=== PATIENT | female | born 1995 ===

== ENCOUNTER 2023-01-06 16:05 | Emergency (ER) | payer OTHER, SELFPAY ==
[2023-01-06 16:28] VITALS: BP 149/95; PULSE 80; RESP 18; TEMP 36.9; O2SAT 100; BMI 33.2
--- NOTE | 2023-01-06 16:29 | ED.FEMALEGU ---
HPI - Female Genitourinary General Chief complaint: Urogenital-Female Stated complaint: ?UTI Time Seen by Provider: 01/06/23 17:04 Related Data Previous Rx's Medication Instructions Recorded nitrofurantoin 100 mg PO Q12H 7 days #14 caps 01/06/23 monohydrate/macrocrystals 100 mg capsule (Macrobid) phenazopyridine 200 mg tablet 200 mg PO TID PRN pain 6 doses #6 01/06/23 (Pyridium) tabs Allergies Allergy/AdvReac Type Severity Reaction Status Date / Time No Known Allergies Allergy Verified 01/06/23 16:29 Physical Exam Vital Signs: Vital Signs: Last Vital Signs Temp 98.5 F 01/06/23 16:28 Pulse 80 01/06/23 16:28 Resp 18 01/06/23 16:28 BP 149/95 H 01/06/23 16:28 Pulse Ox 100 01/06/23 16:28 O2 Del Method Room Air 01/06/23 16:28 BMI result Body Mass Index 33.2 Course Course Course Narrative: RME - 27 yo female presents to the ER for evaluation of 2 weeks of dysuria, urgency, frequency and suprapubic pain. No abd pain, N/V/D, fever, chills or back pain. LMP in July, hx irregular menses. Plan: Upreg, UA Reevaluation(s) Reevaluation #1: see valdo diez PA-C's note for full evaluation and treatment plan Medications Administered Discontinued Medications Generic Name Dose Route Start Last Admin Trade Name Freq PRN Reason Stop Dose Admin Nitrofurantoin Macrocrystals 100 mg 01/06/23 17:34 01/06/23 17:49 Nitrofurantoin Monohyd/M-Cryst 100 Mg Capsule PO 01/06/23 17:35 100 mg ONCE ONE Administration Medical Decision Making Lab Data Labs: Lab Results 01/06/23 01/06/23 Range/Units 16:55 16:55 Urine Color Straw Urine Appearance Hazy Urine pH 7.0 (5.0-9.0) Ur Specific [place] 1.020 (1.005-1.025) Urine Protein Negative (Neg-Trace) mg/dL Urine Glucose (UA) Negative (Negative) mg/dL Urine Ketones Negative (Negative) mg/dL Urine Blood Small (1+) H (Negative) Urine Nitrite Negative (Negative) Ur Leukocyte Esterase Small (1+) H (Negative) Urine RBC 6-10 H (0-2) /HPF Urine WBC >50 H (0-5) /HPF Ur Squamous Epith Cells 0-2 (0-2) /HPF Urine Bacteria Trace (None Seen) Hyaline Casts 0-2 (0-2) /LPF Urine Test NEGATIVE (NEGATIVE) Discharge Plan Discharge Clinical Impression: Urinary tract infection Patient Disposition: Home, Self-Care Instructions: Urinary Tract Infection in Women (DC) Additional Instructions: You have a urinary tract infection Macrobid is an antibiotic please take as prescribed Pyridium will help with urinary discomfort, this will turn your urine orange, this is normal If you develop fever, nausea/vomiting, abdominal pain or flank pain return to the ED Prescriptions: New phenazopyridine [Pyridium] 200 mg tablet 200 mg PO TID PRN (Reason: pain) Qty: 6 0RF nitrofurantoin monohyd/m-cryst [Macrobid] 100 mg capsule 100 mg PO Q12H 7 Days Qty: 14 0RF Rx Instructions: must administer with a meal/food Referrals: Mitch Engel MD [Primary Care Provider] - 1 week Interventions: ED Discharge Assessment Last Done: 01/06/23 17:58 Discharge Date/Time: 01/06/23 17:59
[2023-01-06 17:10] LABS: UPreg QC Valid YES; Urine Pregnancy NEGATIVE (NEGATIVE)
[2023-01-06 17:11] LABS: Appearance Urine Hazy; Color Urine Straw; Glucose Urine UA Negative (Negative); Leukocyte Esterase Urine Small (1+) (Negative); Nitrite Urine Negative (Negative); UMIC TRIGGER UACC YES; Urine Blood Small (1+) (Negative); Urine Ketones Negative (Negative); Urine Protein Negative (Neg-Trace)
[2023-01-06 17:28] LABS: Bacteria Urine Trace (None Seen); Hyaline Casts Urine 0-2 /LPF (0-2); Squamous Epithelial Cell Urine 0-2 /HPF (0-2); UACC Culture Trigger YES; WBC Urine >50 /HPF (0-5)
--- NOTE | 2023-01-06 17:34 | ED.FEMALEGU ---
HPI - Female Genitourinary General Chief complaint: Urogenital-Female Stated complaint: ?UTI Time Seen by Provider: 01/06/23 17:04 Source: patient, RN notes reviewed and old records reviewed Mode of arrival: ambulatory History of Present Illness HPI Narrative: 27-year-old female with no significant past medical history presenting to the ED complaining of urinary urgency and dysuria x3 weeks. Reports mild associated suprapubic discomfort. Denies fever/chills, nausea/vomiting, flank pain, vaginal bleeding/discharge MD elicited complaint: UTI Related Data Previous Rx's Medication Instructions Recorded nitrofurantoin 100 mg PO Q12H 7 days #14 caps 01/06/23 monohydrate/macrocrystals 100 mg capsule (Macrobid) phenazopyridine 200 mg tablet 200 mg PO TID PRN pain 6 doses #6 01/06/23 (Pyridium) tabs Allergies Allergy/AdvReac Type Severity Reaction Status Date / Time No Known Allergies Allergy Verified 01/06/23 16:29 Review of Systems Review of Systems: Constitutional: No Fever, No Chills ENT/Mouth: No Ear Pain, No Nasal Congestion, No sore throat, No Rhinorrhea, No Swallowing Difficulty Cardiovascular: No Chest Pain, No SOB Respiratory: No Cough Gastrointestinal: No Nausea, No Vomiting, No Diarrhea, +Abdominal pain Genitourinary: + Dysuria, + Urinary Frequency, No Hematuria, No Urinary Incontinence/retention, No Urgency, No Flank Pain Musculoskeletal: No joint pain, No Myalgias, No Joint Swelling Skin: No Skin Lesions, No rash Yes all other systems are reviewed and are negative Constitutional: Constitutional: Reports as per [facility] Past Medical History Attestation statement: The following information was validated with the patient. Source: old records reviewed Physical Exam Vital Signs: Vital Signs: Last Vital Signs Temp 98.5 F 01/06/23 16:28 Pulse 80 01/06/23 16:28 Resp 18 01/06/23 16:28 BP 149/95 H 01/06/23 16:28 Pulse Ox 100 01/06/23 16:28 O2 Del Method Room Air 01/06/23 16:28 BMI result Body Mass Index 33.2 Const: General: cooperative, healthy appearing and no acute distress Orientation/consciousness: patient oriented x3 Limitations: no limitations HEENT: Head: Yes normal to inspection and Yes atraumatic Ears: hearing grossly normal bilaterally General nose exam: Normal external nose present Face and sinus: Yes normal facial exam Eyes: General: appearance normal, both eyes and all related structures EOM: EOMs intact bilaterally Neck: Neck: Yes normal visual inspection and Yes no meningeal signs Resp: Effort & Inspection: normal respiratory effort and no respiratory distress Cardio: Rate: regular rate GI: Inspection: Yes normal to inspection Palpation (GI): Soft to palpation, nontender, no guarding and not rigid : General: Yes no CVA tenderness Back/Spine/Pelvis: Back: no CVA tenderness Skin: Rashes: no rashes Wounds: no wounds Neuro: General: patient oriented x3, tone normal and no meningeal signs Gait exam (Neuro): Normal gait present Extrem: General: Yes normal to inspection Course Course Course Narrative: 1736--UA infected, negative > patient given 1st dose of Macrobid in the ED Results discussed with patient including worrisome signs and symptoms and strict return precautions, and when to return to the emergency department. They verbalized understanding and feel safe for discharge at this time. Medications Administered Discontinued Medications Generic Name Dose Route Start Last Admin Trade Name Freq PRN Reason Stop Dose Admin Nitrofurantoin Macrocrystals 100 mg 01/06/23 17:34 01/06/23 17:49 Nitrofurantoin Monohyd/M-Cryst 100 Mg Capsule PO 01/06/23 17:35 100 mg ONCE ONE Administration Medical Decision Making Medical Decision Making [facility] Narrative: 27-year-old female with no significant past medical history presenting to the ED complaining of urinary urgency and dysuria x3 weeks. On exam vital signs stable, NAD, nontoxic appearing, abdomen soft/nontender, no CVAT. Concern for UTI. Lower suspicion for STI, ovarian torsion/cyst, appendicitis/diverticulitis or renal stone/pilonidal plan: UA, urine Please refer to course for remaining clinical decision making, interpretation of labs/imaging results, and discussions with consultants and/or family members. Differential Diagnosis Differential Diagnoses: The differential diagnosis associated with the presentation includes As above Lab Data [facility] Lab Attestation statement: I reviewed the patient's lab results. Labs: Lab Results 01/06/23 01/06/23 Range/Units 16:55 16:55 Urine Color Straw Urine Appearance Hazy Urine pH 7.0 (5.0-9.0) Ur Specific [place] 1.020 (1.005-1.025) Urine Protein Negative (Neg-Trace) mg/dL Urine Glucose (UA) Negative (Negative) mg/dL Urine Ketones Negative (Negative) mg/dL Urine Blood Small (1+) H (Negative) Urine Nitrite Negative (Negative) Ur Leukocyte Esterase Small (1+) H (Negative) Urine RBC 6-10 H (0-2) /HPF Urine WBC >50 H (0-5) /HPF Ur Squamous Epith Cells 0-2 (0-2) /HPF Urine Bacteria Trace (None Seen) Hyaline Casts 0-2 (0-2) /LPF Urine Test NEGATIVE (NEGATIVE) External Record Review External record reviewed: Inpatient record, Office record, Outpatient record, Prior outpatient labs, Prior outpatient radiology, Primary care record and Outside ED record Tests considered The following testing was considered but not selected: As above Prescription Management I considered prescription management with: Pain Medication Discharge Plan Discharge Clinical Impression: Urinary tract infection Patient Disposition: Home, Self-Care Instructions: Urinary Tract Infection in Women (DC) Additional Instructions: You have a urinary tract infection Macrobid is an antibiotic please take as prescribed Pyridium will help with urinary discomfort, this will turn your urine orange, this is normal If you develop fever, nausea/vomiting, abdominal pain or flank pain return to the ED Prescriptions: New phenazopyridine [Pyridium] 200 mg tablet 200 mg PO TID PRN (Reason: pain) Qty: 6 0RF nitrofurantoin monohyd/m-cryst [Macrobid] 100 mg capsule 100 mg PO Q12H 7 Days Qty: 14 0RF Rx Instructions: must administer with a meal/food Referrals: Mitch Engel MD [Primary Care Provider] - 1 week Interventions: ED Discharge Assessment Last Done: 01/06/23 17:58 Discharge Date/Time: 01/06/23 17:59
[2023-01-06] MEDS: Nitrofurantoin Monohyd/M-Cryst 100 MG CAPSULE PO (17:49)
== END 2023-01-06 17:59 | disposition home or self-care (01) ==
PROVIDERS: Physician Assistant; Emergency Provider Emergency Medicine Emergency Medical Services; PCP Internal Medicine
DX: N39.0 Urinary tract infection, site not specified (principal); N39.41 Urge incontinence; Z79.899 Other long term (current) drug therapy
CPT/HCPCS: 81001; 81025; 87086; 87088; 87186; 99282; 99283

== ENCOUNTER 2023-01-29 08:00 | Outpatient (AMB) | payer OTHER, SELFPAY ==
--- NOTE | 2023-01-29 08:07 | A.OFFPC_ITS ---
Vital Signs 01/29/23 08:09 Height 5 ft Weight 177 lb BMI 34.6 BP 132/90 H Blood Pressure Location Lt brachial Position Sitting Intake Visit Reasons: follow up / new patient visit Intake Note: New patient establishing care Equipment Planner Required: No Accompanied by: Self / Same As Patient Allergies No Known Allergies Allergy (Verified 01/29/23 08:23) Medication List - Last Reconciled 01/29/23 by JLUIS Pepe No Known Home Meds Tobacco use date assessed: 01/29/23 Dental Screening Dental Screen Date: 01/29/23 Did you have a dental visit in the last 12 months?: No Did you have a dental problem in the last 6 months where you did not have access to dental care?: No Was dental information given to patient?: Patient has dentist HPI HPI Comments History of Present Illness Details 27-year-old female new patient presents today to establish care. Denies significant medical history. Patient reports that she feels like her anxiety has been bothering her more. Wally 7 score 4, patient requesting referral to counseling. Referral entered. Review of the notes patient was seen in the emergency room on 01/06/2023 for UTI and was treated with Macrobid and Pyridium. Patient reports thoracic/lumbar back pain ongoing since she was in high school which it seems to be worsening with pain shooting down left leg with ambulation. Patient states she was told in the past she may have scoliosis. Patient requesting x-rays. [facility] Surgical History No pertinent past surgical history Family History (Updated 01/29/23 @ 08:20 by JLUIS Pepe) Mother Mental health disorder Substance use disorder Father Diabetes Sister Diabetes Social History (Updated 01/29/23 @ 08:21 by JLUIS Pepe) Housing: House Alcohol intake: current Alcohol intake frequency: holidays/special occasions only Alcohol type: hard liquor Patient Tobacco Use Status: Never used Tobacco e-Cigarette/Vaping Use: Never Used Second Hand Smoke Exposure: No Substance Use Type: Marijuana service: No Current occupational status: employed Current occupational exposures/hazards: No Cognitive needs: No Hearing needs: No Vision needs: No Questionnaire PHQ-9 Over the last 2 weeks, how often have you been bothered by any of the following problems? 1. Little interest or pleasure in doing things: several days 2. Feeling down, depressed, or hopeless: several days 3. Trouble falling or staying asleep, or sleeping too much: not at all 4. Feeling tired or having little energy: several days 5. Poor appetite or overeating: several days 6. Feeling bad about yourself - or that you are a failure or have let yourself or your family down: not at all 7. Trouble concentrating on things, such as reading the newspaper or watching television: not at all 8. Moving or speaking so slowly that other people could have noticed. Or the opposite - being so fidgety or restless that you have been moving around a lot more than usual: not at all 9. Thoughts that you would be better off or of hurting yourself in some way: not at all Total score: 4 Depression Screening Interpretation: Negative 90653 - PHQ-9 Billing: Yes Source: Developed by Drs. Waqas August, Ksenia Mcconnell, Alexys Weiner and colleagues, with an educational wdaine from [employer]. Thrive Questionnaire Date Thrive assessed: 01/29/23 I am a: Patient What is your living situation today?: I have a steady place to live Within the past 12 months, did the food you bought not last and you didn't have the money to get more?: Never true Within the past 12 months, did you worry whether your food would run out before you got money to buy more?: Never true Do you have trouble paying for medicines?: No Do you have trouble getting transportation to medical appointments?: No Do you have trouble paying your heating and electricity bill?: No Do you have trouble taking care of your child, family member or friend?: No Do you have trouble with day-to-day activities such as bathing, preparing meals, shopping, managing finances, etc.?: No Are you currently unemployed and looking for a job?: No Are you interested in more education?: No Please select the resources that you would like help with: None Currently or been in a relationship where the following occur: no concerns reported AUDIT C Alcohol Use Questionnaire (AUDIT-C) 1. How often do you have a drink containing alcohol?: Monthly or less 2. How many drinks containing alcohol do you have on a typical day when you are drinking?: 1 or 2 3. How often do you have six or more drinks on one occasion?: Never Total Score: 1 WALLY-7 AMB Questionnaire WALLY-7 Date WALLY - 7 assessed: 01/29/23 Feeling nervous, anxious, or on edge: 1 = Several days Not being able to stop or control worryin = Not at all Worrying too much about different things: 1 = Several days Trouble relaxin = Several days Being so restless that it is hard to sit still: 0 = Not at all Becoming easily annoyed or irritable: 1 = Several days Feeling afraid as if something awful might happen: 0 = Not at all Total WALLY-7 score (0-4 normal; 5-9 mild; 10-14 moderate; 15-21 severe): 4 Source: Developed by Drs. Waqas August, Ksenia Mcconnell, Alexys Weiner and colleagues, with an educational dwaine from [employer]. WALLY-7 Assessment Billing WALLY-7 Assessment Tool: WALLY-7 Assessment 78585 Review of Systems Const Denies chills, Denies fatigue, Denies fever(s) and Denies poor appetite Eyes Denies no additional complaints ENT Reports Normal hearing present Card Denies chest pain, Denies syncope, Denies rapid heart rate and Denies dyspnea Resp Denies cough and Denies dyspnea GI Denies change in stool character, Denies constipation, Denies diarrhea, Denies nausea and Denies vomiting Denies urinary frequency, Denies dysuria and Denies urinary urgency Musc Reports back pain Neuro Reports Normal hearing present, Denies confusion and Denies syncope Psych Denies confusion Endo Denies fatigue Physical exam (Primary Care) Vital Signs: Last Vital Signs BP 132/90 H 01/29/23 08:09 BMI result Body Mass Index 34.6 Tobacco/Smoking Status: Tobacco use Status Tobacco use date assessed 01/29/23 01/29/23 08:17 Patient Tobacco Use Status Never used Tobacco 01/29/23 08:21 e-Cigarette/Vaping Use Never Used 01/29/23 08:21 PHQ-9: PHQ-9 Score PHQ-9: Total score 4 01/29/23 08:22 Depression Screening Interpretation: Negative Thrive Assessment: Date of Thrive Assessment Date Thrive assessed 01/29/23 01/29/23 08:17 Currently or been in a relationship where the following occur: no concerns reported Const General: No confusion Orientation/consciousness: No confusion HENMT Head: Yes normocephalic and Yes atraumatic Eyes Conjunctivae: conjunctivae normal Chest Chest palpation & inspection: normal inspection of the chest Resp Effort & Inspection: normal respiratory effort Auscultation: clear to auscultation bilaterally, no crackles, no rhonchi and no wheezes Cardio Rate: regular rate Rhythm: regular rhythm Heart sounds: S1 normal heart sound present and S2 normal heart sound present GI Inspection: Yes normal to inspection General: Yes no CVA tenderness Back/Spine/Pelvis Back: no CVA tenderness Cervical Spine: normal cervical lordosis and cervical ROM normal Thoracic/Lumbar Spine: thoracic and lumbar spine normal to inspection, pain with thoraco-lumbar ROM, No thoracic spinal tenderness and lumbar spinal tenderness Pelvis: no pain with anterior-posterior compression and buttock tenderness Neuro General: No confusion Cranial nerves: Yes Normal hearing present Extrem General: No edema Assessment and Plan Assessment & Plan (1) Anxiety: Code(s): F41.9 - Anxiety disorder, unspecified Plan: Referral entered to counseling. (2) Lumbar back pain: Code(s): M54.50 - Low back pain, unspecified Plan: Lumbar spine x-ray orders. can take [id number] Tylenol or ibuprofen as needed for pain. (3) Thoracic back pain: Code(s): M54.6 - Pain in thoracic spine Plan: Thoracic spine x-ray ordered. can take [id number] Tylenol or ibuprofen as needed for pain. Plan Keep scheduled physical exam in March. Orders: Orders Cholesterol Today Z13.220 - Encounter for screening for lipoid disorders Comprehensive Met. Panel Today Z13.1 - Encounter for screening for diabetes mellitus TSH reflex Free T4 Today Z13.29 - Encounter for screening for other suspected endocrine disorder XR lumbar spine 2-3V Today M54.50 - Low back pain, unspecified, M54.6 - Pain in thoracic spine XR thoracic spine 2V Today M54.6 - Pain in thoracic spine Referrals Counseling Referral F41.9 - Anxiety disorder, unspecified Coding Level of Care Code New Pt Level 3 (03913) Diagnoses Anxiety F41.9 Lumbar back pain M54.50 Thoracic back pain M54.6 Additional Codes WALLY-7 Assessment Billing - WALYL-7 Assessment Tool: WALLY-7 Assessment [id number] ([id number])
[2023-01-29 08:09] VITALS: BP 132/90; BMI 34.6
== END 2023-01-29 08:35 | disposition home or self-care (01) ==
PROVIDERS: PCP Internal Medicine; Visit Provider Nurse Practitioner Family
DX: F41.9 Anxiety disorder, unspecified (principal); M54.50 Low back pain, unspecified; M54.6 Pain in thoracic spine
CPT/HCPCS: 99203

== ENCOUNTER 2023-01-29 08:41 | Outpatient (REF) | payer OTHER, SELFPAY ==
[2023-01-29 10:32] LABS: Alanine Aminotransferase 20 U/L (0-31); Albumin Level 4.1 g/dL (3.5-5.0); Alkaline Phosphatase 64 U/L (39-117); Anion Gap 12 (12-20); Aspartate Amino Transferase 13 U/L (5-31); Bilirubin Total 0.3 mg/dL (0.0-1.0); Blood Urea Nitrogen 11 mg/dL (9-16); Carbon Dioxide 24 mmol/L (22-29); Chloride 107 mmol/L (96-108); Cholesterol 155 mg/dL (<200); Estimated Glomerular Filt Rate > 60; Glucose Random 93 mg/dL (60-115); Potassium 3.7 mmol/L (3.3-5.1); Sodium 139 mmol/L (135-145); Total Protein 7.3 g/dL (6.5-8.0)
[2023-01-29 10:56] LABS: TSH reflex Free T4 1.41 uIU/mL (0.32-4.0)
== END 2023-01-29 08:42 | disposition home or self-care (01) ==
LOC: HO.LAB 08:41
PROVIDERS: PCP Internal Medicine; Visit Provider Nurse Practitioner Family
DX: Z13.29 Encounter for screening for other suspected endocrine disorder (principal); Z13.220 Encounter for screening for lipoid disorders; F41.1 Generalized anxiety disorder
CPT/HCPCS: 36415; 80053; 82465; 84443

== ENCOUNTER 2023-02-24 15:57 | Outpatient (REF) | payer OTHER, SELFPAY ==
--- NOTE | ~2023-02-24 | XR_ITS ---
EXAMINATION: XR LUMBOSACRAL SPINE CLINICAL INFORMATION: Pain COMPARISON: None available. TECHNIQUE: Three views of the lumbosacral spine. FINDINGS: There are 5 not ribs bearing vertebral bodies and lumbar spine. Vertebral bodies are well aligned and intervertebral discs are preserved. Pedicles are intact and sacroiliac joints unremarkable. There is straightening of lumbar lordosis XR/XR lumbar spine 2-3V IMPRESSION: Straightening of lumbar lordosis may be result of muscle spasm.
--- NOTE | ~2023-02-24 | XR_ITS ---
EXAMINATION: XR THORACOLUMBAR SPINE CLINICAL INFORMATION: Pain COMPARISON: None available. TECHNIQUE: 2 views of thoracic spine FINDINGS: The vertebral alignment is normal. No intrinsic bony abnormality. The disc heights and neural foramina are well maintained. The endplates and posterior elements are normal. No fracture or subluxation. The surrounding prevertebral soft tissues are unremarkable. XR/XR thoracic spine 2V IMPRESSION: No compression fractures or subluxations are identified. The disc spaces are preserved. No endplate changes are seen. The prevertebral soft tissues are normal. The foramina are patent.
== END 2023-02-24 15:58 | disposition home or self-care (01) ==
LOC: HO.XRAY 15:57
PROVIDERS: PCP Nurse Practitioner Family; Visit Provider Nurse Practitioner Family
DX: M54.6 Pain in thoracic spine (principal); M54.50 Low back pain, unspecified
CPT/HCPCS: 72070; 72100

== ENCOUNTER 2023-03-13 09:00 | Outpatient (AMB) | payer OTHER, SELFPAY ==
--- NOTE | 2023-03-13 09:04 | A.OFFPC_ITS ---
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 Presents today for physical exam. Left-sided lower back pain, patient reports has upcoming appointment scheduled with chiropractor. Eye exam: Recommended Pap smear: Referral entered. Declined shot, patient reports she has her immunization records at home and she will bring in a copy so we can add her last Tdap immunization to her file. [facility] Surgical History No pertinent past surgical history Family History Mother Mental health disorder Substance use disorder Father Diabetes Sister Diabetes Social History Housing: House Alcohol intake: current Alcohol intake frequency: holidays/special occasions only Alcohol type: hard liquor Patient Tobacco Use Status: Never used Tobacco e-Cigarette/Vaping Use: Never Used Second Hand Smoke Exposure: No Substance Use Type: Marijuana service: No Current occupational status: employed Current occupational exposures/hazards: No Cognitive needs: No Hearing needs: No Vision needs: No Questionnaire Thrive Questionnaire Date Thrive assessed: 01/29/23 SALLY-7 AMB Questionnaire SALLY-7 Date SALLY - 7 assessed: 01/29/23 Source: Developed by Drs. Waqas August, Ksenia Mcconnell, Alexys Weiner and colleagues, with an educational dwaine from [employer]). Review of Systems Const Denies chills, Denies fatigue, Denies fever(s) and Denies poor appetite Eyes Denies no additional complaints ENT Reports Normal hearing present Card Denies chest pain, Denies syncope, Denies rapid heart rate and Denies dyspnea Resp Denies cough and Denies dyspnea GI Denies change in stool character, Denies constipation, Denies diarrhea, Denies nausea and Denies vomiting Denies urinary frequency, Denies dysuria and Denies urinary urgency Neuro Reports Normal hearing present, Denies confusion and Denies syncope Psych Denies confusion Endo Denies fatigue Physical exam (Primary Care) Vital Signs: Last Vital Signs BP 120/70 03/13/23 09:06 BMI result Body Mass Index 34.0 Tobacco/Smoking Status: Tobacco use Status Tobacco use date assessed 03/13/23 03/13/23 09:12 Patient Tobacco Use Status Never used Tobacco 03/13/23 09:04 e-Cigarette/Vaping Use Never Used 03/13/23 09:04 Thrive Assessment: Date of Thrive Assessment Date Thrive assessed 01/29/23 03/13/23 09:04 Const General: No confusion Orientation/consciousness: No confusion HENMT Head: Yes normocephalic and Yes atraumatic Ears: external ears normal and TM's normal bilaterally General nose exam: Normal external nose present and Normal nasal mucous membranes and turbinates present Face and sinus: Yes normal facial exam and Yes sinuses nontender Mouth: moist mucous membranes Throat: Yes tonsils normal Eyes Conjunctivae: conjunctivae normal Sclerae: sclerae normal Pupils: Equal, round and reactive pupils present and Pupils normal by confrontation EOM: EOMs intact bilaterally Direct Ophthalmoscopy: normal light reflex Neck Neck: Yes no lymphadenopathy and Yes supple Thyroid: Thyroid normal Chest Chest palpation & inspection: normal inspection of the chest Resp Effort & Inspection: normal respiratory effort Auscultation: clear to auscultation bilaterally, no crackles, no rhonchi and no wheezes Cardio Rate: regular rate Rhythm: regular rhythm Peripheral pulses: radial pulses present and dorsalis pedis present GI Inspection: Yes normal to inspection Palpation (GI): Soft to palpation, nontender and No hepatosplenomegaly present Auscultation: normoactive bowel sounds Skin General skin exam: no rashes or lesions noted Neuro General: No confusion Cranial nerves: Yes Equal, round and reactive pupils present and Yes Normal hearing present Cognition (Neuro): normal cognition Gait exam (Neuro): Normal gait present Motor exam (neuro): 5/5 motor strength present throughout Deep tendon reflexes (DTR's): Right brachioradialis reflex intensity grade: 2+, Left brachioradialis reflex intensity grade: 2+, Right patellar reflex intensity grade: 2+ and Left patellar reflex intensity grade: 2+ Extrem General: No edema Assessment and Plan Assessment & Plan (1) Anxiety: Code(s): F41.9 - Anxiety disorder, unspecified Plan: Continue to establish care with counseling. (2) Physical exam, annual: Code(s): Z00.00 - Encounter for general adult medical examination without abnormal findings Plan: Follow-up in 1 year for physical exam (3) Lumbar back pain: Code(s): M54.50 - Low back pain, unspecified Plan: Patient advise can take [id number] ibuprofen as needed for pain and will send cyclobenzaprine 5 mg as needed at bedtime for x-ray revealing lumbar straightening likely related to muscle spasm. Continue to establish care with chiropractor. Patient made aware if no improvement with muscle relaxer and chiropractor, can refer to physical therapy. Plan Follow-up in 1 year sooner if needed. Orders: Referrals INSURANCE ASSOCIATE Referral Z12.4 - Encounter for screening for malignant neoplasm of cervix Medications: New cyclobenzaprine 5 mg PO BEDTIME PRN 14 tabs 0RF muscle spasm Coding Level of Care Code Est Pt Prev Care 18-39y(23934) Diagnoses Anxiety F41.9 Physical exam, annual Z00.00 Lumbar back pain M54.50
[2023-03-13 09:06] VITALS: BP 120/70; BMI 34.0
== END 2023-03-13 09:29 | disposition home or self-care (01) ==
PROVIDERS: PCP Internal Medicine; Visit Provider Nurse Practitioner Family
DX: F41.9 Anxiety disorder, unspecified (principal); Z00.00 Encounter for general adult medical examination without abnormal findings; M54.50 Low back pain, unspecified
CPT/HCPCS: 99395

== ENCOUNTER 2023-05-15 06:51 | Emergency (ER) | payer OTHER, SELFPAY ==
[2023-05-15 06:55] VITALS: BP 154/98; PULSE 80; RESP 14; TEMP 36.3; O2SAT 100; BMI 33.2
[2023-05-15 07:14] LABS: Appearance Urine Clear; Color Urine Yellow; Glucose Urine UA Negative (Negative); Leukocyte Esterase Urine Small (1+) (Negative); Nitrite Urine Negative (Negative); PH 5.5 (5.0-9.0); Specific Gravity - Urine 1.025 (1.005-1.025); UMIC TRIGGER UACC YES; Urine Blood Trace (Negative); Urine Ketones Negative (Negative); Urine Protein Negative (Neg-Trace)
[2023-05-15 07:16] LABS: Bacteria Urine Trace (None Seen); Hyaline Casts Urine 0-2 /LPF (0-2); UACC Culture Trigger YES
--- NOTE | 2023-05-15 07:26 | ED.FEMALEGU ---
HPI - Female Genitourinary General Chief complaint: Urogenital-Female Stated complaint: UTI Time Seen by Provider: 05/15/23 07:05 Source: patient Mode of arrival: ambulatory Limitations: no limitations History of Present Illness HPI Narrative: 28-year-old female presents for evaluation of urinary urgency and increased frequency. She denies dysuria and hematuria. She reports foul smelling urine. No flank pain, abdominal pain, nausea, vomiting, or diarrhea. No fevers or chills. No chest pain or SOB. She was treated for an uncomplicated UTI 3 months ago which she endorses similar symptoms for. Related Data Previous Rx's Medication Instructions Recorded cyclobenzaprine 5 mg tablet 5 mg PO BEDTIME PRN muscle spasm 03/13/23 #14 tabs nitrofurantoin 100 mg PO BID 5 days #10 caps 05/15/23 monohydrate/macrocrystals 100 mg capsule (Macrobid) phenazopyridine 100 mg tablet 200 mg (2 x 100 mg) PO TID 2 days 05/15/23 (Pyridium) #6 tabs Allergies Allergy/AdvReac Type Severity Reaction Status Date / Time No Known Allergies Allergy Verified 03/13/23 09:33 Review of Systems Review of Systems: Constitutional :No Fever, No Chills, No Fatigue, No Malaise Cardiovascular : No Chest Pain, No SOB, No Dyspnea on Exertion, No Orthopnea, No Edema, No Palpitations Respiratory : No Cough, No Sputum, No Wheezing Gastrointestinal : No Nausea, No Vomiting, No Diarrhea, No Constipation, No abdominal Pain, No Hematochezia, No Melena Genitourinary : No Dysuria, + Urinary Frequency, No Hematuria, Musculoskeletal : No joint pain, No Myalgias, No Joint Swelling Skin : No Skin Lesions, No rash Neuro : No Weakness, No Numbness, No Dizziness, No Headache All other systems reviewed and are negative Yes all other systems are reviewed and are negative [facility] Past Medical History Attestation statement: The following information was validated with the patient. Source: old records reviewed and nursing notes reviewed Surgical History No pertinent past surgical history Family History Family History Mother Mental health disorder Substance use disorder Father Diabetes Sister Diabetes Social History Social History Housing: House Alcohol intake: current Alcohol intake frequency: holidays/special occasions only Alcohol type: hard liquor Patient Tobacco Use Status: Never used Tobacco e-Cigarette/Vaping Use: Never Used Second Hand Smoke Exposure: No Substance Use Type: Marijuana Advance Directives: No Advance Directives Information Provided: No service: No Current occupational status: employed Current occupational exposures/hazards: No Cognitive needs: No Hearing needs: No Vision needs: No Physical Exam Vital Signs: Vital Signs: Last Vital Signs Temp 97.4 F 05/15/23 06:55 Pulse 80 05/15/23 06:55 Resp 14 05/15/23 06:55 BP 154/98 H 05/15/23 06:55 Pulse Ox 100 05/15/23 06:55 O2 Del Method Room Air 05/15/23 06:55 BMI result Body Mass Index 33.2 Appearance: Alert.? Oriented X3.? No acute distress.? Head: Normocephalic, atraumatic, no step-offs or deformities CVS: Normal heart rate and rhythm.? Pulses normal.? Respiratory: No respiratory distress.? Breath sounds normal.? Abdomen: Soft and nontender. ? Skin: Skin warm and dry.? Normal skin color.? Normal skin turgor.? Extremities: No lower extremity edema.? No calf ttp. 5/5 strength to bilateral upper and lower extremities Back: No midline tenderness, no C-spine tenderness, full range of motion, no CVA tenderness bilaterally Neuro: Oriented X 3.? No motor deficit.? No sensory deficit. CN 2-12 intact Course Reevaluation(s) Reevaluation #1: UA with WBC. UA w/ bacteria. Educated patient on diagnosis and treatment plan, answered all question, patient verbalizes understanding. At this time patient will be discharged home, advised to return with new or worsening symptoms. Educated on worrisome signs and symptoms and when to return. At this time I feel comfortable discharge home. Time: 07:45 Medical Decision Making Medical Decision Making MDM Narrative: 28-year-old female presents for evaluation of urinary urgency and increased frequency. No dysuria, hematuria, flank pain, abdominal pain, or fevers. Physical exam benign Likely UTI, urolithiasis, unlikely pyelonephritis, FREEMAN, Pelvic Inflammatory Disease Plan: UA Differential Diagnosis Differential Diagnoses: The differential diagnosis associated with the presentation includes Likely UTI, urolithiasis, unlikely pyelonephritis, FREEMAN, Pelvic Inflammatory Disease Admission/Observation Consideration of admission/observation: Escalation of care including admission/observation considered no indication Lab Data MDM Lab Attestation statement: I reviewed the patient's lab results. Labs: Lab Results 05/15/23 Range/Units 07:05 Urine Color Yellow Urine Appearance Clear Urine pH 5.5 (5.0-9.0) Ur Specific [place] 1.025 (1.005-1.025) Urine Protein Negative (Neg-Trace) mg/dL Urine Glucose (UA) Negative (Negative) mg/dL Urine Ketones Negative (Negative) mg/dL Urine Blood Trace H (Negative) Urine Nitrite Negative (Negative) Ur Leukocyte Esterase Small (1+) H (Negative) Urine RBC 3-5 H (0-2) /HPF Urine WBC 11-20 H (0-5) /HPF Ur Squamous Epith Cells 6-10 (0-2) /HPF Urine Bacteria Trace (None Seen) Hyaline Casts 0-2 (0-2) /LPF Prescription Management I considered prescription management with: Antibiotic Critical Care Time Critical Care Time Critical Care Time: No Discharge Plan Discharge Clinical Impression: Urinary tract infection Patient Disposition: Home, Self-Care Instructions: Urinary Tract Infection in Women (ED) Additional Instructions: Take your medications as prescribed. If you were prescribed antibiotics today, it is important that you take your medication to their entirety, do not skip any doses, do not finish them early. Follow-up with your primary care provider this week. Return to the emergency department with new or worsening symptoms. Such as fevers, chills, chest pain, shortness of breath, nausea, vomiting, dizziness, headache, vision changes, lethargy In case of emergency call 911 Prescriptions: New nitrofurantoin monohyd/m-cryst [Macrobid] 100 mg capsule 100 mg PO BID 5 Days Qty: 10 0RF Rx Instructions: must administer with a meal/food phenazopyridine [Pyridium] 100 mg tablet 200 mg PO TID 2 Days Qty: 6 0RF No Action cyclobenzaprine 5 mg tablet 5 mg PO BEDTIME PRN (Reason: muscle spasm) Qty: 14 0RF Referrals: Mitch Engel MD [Primary Care Provider] - 2 days
== END 2023-05-15 07:44 | disposition home or self-care (01) ==
PROVIDERS: Emergency Provider Emergency Medicine Emergency Medical Services; PCP Internal Medicine
DX: N39.0 Urinary tract infection, site not specified (principal); R39.15 Urgency of urination; Z79.899 Other long term (current) drug therapy
CPT/HCPCS: 81001; 87086; 99283

== ENCOUNTER 2023-09-23 11:12 | Outpatient (AMB) | payer OTHER, SELFPAY ==
--- NOTE | 2023-09-23 11:22 | MHC.OFFVIS ---
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 She used to see somebody in [place] for her. She was on control in the past to help regulate her periods as well as control but she has not them a while ago her periods a little bit more regular now sometimes she skips a month that that is about it she has been sexually active with somebody for about the last year and she has not using anything for control she would rather not get right now and she has not interested control method either. She is beginning to be open to . 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 She says she does not have any other medical problems. She moved around a lot when she was a child from different states so she does not know if she got the Gardasil vaccine or not. In discussion of testing that we would be offering in doing today she said that she recently was on antibiotics for sinus infection and she did have diarrhea ever since then. She has been taking probiotics she thinks that her vagina is a little irritated from all the wiping after the diarrhea discussed possibly treating yeast if I see symptoms of it. [facility] Surgical History No pertinent past surgical history Family History (Updated 09/23/23 @ 11:26 by GHAZAL Hill) Mother Mental health disorder Substance use disorder Father Diabetes Sister Diabetes Maternal Aunt Breast cancer Social History Housing: House Alcohol intake: current Alcohol intake frequency: holidays/special occasions only Alcohol type: hard liquor Patient Tobacco Use Status: Never used Tobacco e-Cigarette/Vaping Use: Never Used Second Hand Smoke Exposure: No Substance Use Type: Marijuana service: No Current occupational status: employed Current occupational exposures/hazards: No Cognitive needs: No Hearing needs: No Vision needs: No Female Reproductive History Menstrual Age of Menarche: 10 Duration of menses: 6-7 days Date of last menstrual period: 09/07/23 control method: none Total pregnancies: 1 Ab induced: 1 History of abnormal pap smear: No Physical Exam Vital Signs: Last Vital Signs BP 116/70 09/23/23 11:24 BMI result Body Mass Index 33.8 Const General: healthy appearing, comfortable, no acute distress, well developed and alert Nutritional Appearance: average body habitus Orientation/consciousness: patient oriented x3 Limitations: no limitations HEENT Head: Yes normocephalic Neck Neck: Yes normal visual inspection Chest Chest palpation & inspection: normal inspection of the chest Breast/axilla inspection: normal inspection of the breasts and normal inspection of the axillae Breast/axilla palpation: normal palpation of the breasts and normal palpation of the axillae Resp Effort & Inspection: normal respiratory effort GI Inspection: Yes normal to inspection, No Abdominal wall edema and No distended Palpation (GI): Soft to palpation and nontender Other: Normal speculum exam there is some blood in the vault she said her last period was a couple of weeks ago. Her cervix is nulliparous pink smooth small amount of blood is noted uterus midposition difficult feel but nontender good tone with Kegel. There were a few little flecks of white a midst the lite bleeding, consistent w yeast General: Yes bladder normal to palpation External Female Exam: normal external appearance and normal appearance of the urethra Speculum Exam - Vagina: normal appearance of the vagina, normal palpation and normal vaginal discharge Speculum Exam - Cervix: normal appearance of the cervix, normal palpation and nontender Bimanual exam- vagina & uterus: normal bimanual exam, normal palpation, uterine size normal, bladder normal to palpation, consistency normal, normal palpation, uterine mobility normal, uterine shape normal, No Cervical tenderness present, non-tender and no cervical motion tenderness Bimanual Exam- Adnexa, other: normal adnexae, no masses, normal and No adnexal tenderness Neuro General: patient oriented x3 Assessment & Plan Assessment & Plan (1) Encounter for screening examination for sexually transmitted disease: Code(s): Z11.3 - Encounter for screening for infections with a predominantly sexual mode of transmission Category: Medical (2) Well woman exam with routine gynecological exam: Code(s): Z01.419 - Encounter for gynecological examination (general) (routine) without abnormal findings Category: Medical (3) History of irregular menstrual cycles: Comment: Discussed relationship to wait, was on OCPs does not want to be now... Code(s): Z87.42 - Personal history of other diseases of the female genital tract Category: Medical (4) Yeast infection of the vagina: Comment: + vaginal irritation status post antibiotics for sinus infection, Rx Monistat p.r.n. Code(s): B37.31 - Acute candidiasis of vulva and vagina Category: Medical Plan -----Discussed in this visit the following: healthy balanced diet, regular and consistent exercise, getting recommended health screens, doing the best she can for her particular health concerns, kegel exercises, pap smear screening and followup recommendations, mammography screening and SBE, normal changes in cycles in her life stage--- . Discussed what happens when you take antibiotics in terms of alteration of all body taylor including gastrointestinal in vaginal and put use of probiotics which she is doing. Offered prescription for yeast for p.r.n. use. It does not appear very severe. She has not interested in control pills at this time she is taking multivitamins with folic acid. Discussed that it is ideal to get closer to her ideal weight best health before considering moving open to a . Discussed the relationship who being overweight to irregular menses if she ever did miss a menses for 3 months is not related to she should check that out and that would need to dealt with. 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 She was interested in pool STI testing she will go to the lab at her convenience. She is on the portal and can get her results that way. Orders: Orders Hepatitis B Surface Antigen Today Z11.3 - Encounter for screening for infections with a predominantly sexual mode of transmission HIV Ab/Ag Today Z11.3 - Encounter for screening for infections with a predominantly sexual mode of transmission Syphilis Screen Today Z11.3 - Encounter for screening for infections with a predominantly sexual mode of transmission Hepatitis C Antibody Today Z11.3 - Encounter for screening for infections with a predominantly sexual mode of transmission Medications: New miconazole nitrate 2% (Miconazole-7) 1 appful vaginal BEDTIME 45 grams 1RF 7 days Coding Level of Care Code New Pt Prev Care 18-39yr([id number] Diagnoses Encounter for screening examination for sexually transmitted disease Z11.3 Well woman exam with routine gynecological exam Z01.419 History of irregular menstrual cycles Z87.42 Yeast infection of the vagina B37.31
[2023-09-23 11:24] VITALS: BP 116/70; BMI 33.8
== END 2023-09-23 12:53 | disposition home or self-care (01) ==
PROVIDERS: PCP Internal Medicine; Visit Provider Advanced Practice Midwife
DX: Z01.419 Encounter for gynecological examination (general) (routine) without abnormal findings (principal); B37.31 Acute candidiasis of vulva and vagina; Z87.42 Personal history of other diseases of the female genital tract
CPT/HCPCS: 99385

== ENCOUNTER 2023-09-23 11:12 | Outpatient (REF) | payer OTHER, SELFPAY | END 2023-09-23 11:13 | disposition home or self-care (01) | LOC: HO.LNP 11:12 | PROVIDERS: PCP Internal Medicine; Visit Provider Advanced Practice Midwife | DX: Z01.419 Encounter for gynecological examination (general) (routine) without abnormal findings (principal); B37.31 Acute candidiasis of vulva and vagina; Z11.3 Encounter for screening for infections with a predominantly sexual mode of transmission; Z87.42 Personal history of other diseases of the female genital tract | CPT/HCPCS: 88142 ==

== ENCOUNTER 2023-09-23 14:45 | Outpatient (REF) | payer OTHER, SELFPAY ==
[2023-09-23 17:55] LABS: CT PCR NOT DETECTED (Not Detect.); NG PCR NOT DETECTED (Not Detect.)
[2023-09-24 05:05] LABS: Syphilis Screen Nonreactive (Nonreactive)
[2023-09-24 05:30] LABS: HBsAGNum1 0.31 S/CO (0.00-0.99); HIV AB/AG Nonreactive (Nonreactive); HIV Num 1 0.04 S/CO (0.00-0.99); Hepatitis B Surface Antigen Negative (Negative); ~Hepatitis C Antibody Nonreactive (Nonreactive)
[2023-09-24 13:18] LABS: BV Int Neg Control Negative (Negative); BV Int Pos Control Positive (Positive)
== END 2023-09-23 14:46 | disposition home or self-care (01) ==
LOC: HO.LAB 14:45
PROVIDERS: PCP Internal Medicine; Visit Provider Advanced Practice Midwife
DX: R09.89 Other specified symptoms and signs involving the circulatory and respiratory systems (principal); Z20.2 Contact with and (suspected) exposure to infections with a predominantly sexual mode of transmission; Z12.4 Encounter for screening for malignant neoplasm of cervix
CPT/HCPCS: 0353U; 86780; 86803; 87340; 87389; 87480; 87510; 87660

== ENCOUNTER 2024-03-15 12:55 | Outpatient (AMB) | payer OTHER, SELFPAY ==
[2024-03-15 13:01] VITALS: BP 118/76; PULSE 78; O2SAT 99; BMI 34.8
--- NOTE | 2024-03-15 13:01 | A.OFFPC_ITS ---
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 Accompanied by: Self / Same As Patient Allergies No Known Allergies Allergy (Verified 03/15/24 13:33) Medication List - Last Reconciled 03/15/24 by Mitch Engel MD No Known Home Meds Tobacco use date assessed: 03/15/24 Dental Screening Dental Screen Date: 03/15/24 Did you have a dental visit in the last 12 months?: Yes Did you have a dental problem in the last 6 months where you did not have access to dental care?: No Was dental information given to patient?: Patient has dentist HPI Annual Exam HPI Details Patient comes in today for her annual physical examination - she is transferring over from [facility], who is no longer with the practice States that she feels okay She denies any headaches or dizziness Denies any chest pains, no SOB No nausea/vomiting, no abdominal pain No change in bowel habits noted - states that she has chronic constipation for years but has not really needed to take any stool softeners for constipation in the past She denies any acute urinary symptoms Adds that she's always had irregular menstrual periods and can sometimes go for a few months without any periods States that she has also had recurrent back pains for years - started when she was still in school years ago She denies any history of back injury or trauma and had normal thoracic and lumbar spine x-rays done last year (January 2023) States that she used to see her chiropractor regularly for treatments on her back, which she states were helping but she has not been back to see her chirop ractor in a while now She is up-to-date with her annual gynecology exam and pap smear - goes to [facility] Medical History (Updated 03/15/24 @ 14:13 by Mitch Engel MD) Class 1 obesity Irregular periods/menstrual cycles Surgical History No pertinent past surgical history Family History Mother Mental health disorder Substance use disorder Father Diabetes Sister Diabetes Maternal Aunt Breast cancer Social History Housing: House Alcohol intake: current Alcohol intake frequency: holidays/special occasions only Alcohol type: hard liquor Patient Tobacco Use Status: Never used Tobacco e-Cigarette/Vaping Use: Never Used Second Hand Smoke Exposure: No Substance Use Type: Marijuana service: No Current occupational status: employed Current occupational exposures/hazards: No Cognitive needs: No Hearing needs: No Vision needs: No Female Reproductive History Menstrual Age of Menarche: 10 Questionnaire PHQ-9 Over the last 2 weeks, how often have you been bothered by any of the following problems? 1. Little interest or pleasure in doing things: several days 2. Feeling down, depressed, or hopeless: several days 3. Trouble falling or staying asleep, or sleeping too much: not at all 4. Feeling tired or having little energy: several days 5. Poor appetite or overeating: several days 6. Feeling bad about yourself - or that you are a failure or have let yourself or your family down: not at all 7. Trouble concentrating on things, such as reading the newspaper or watching television: not at all 8. Moving or speaking so slowly that other people could have noticed. Or the opposite - being so fidgety or restless that you have been moving around a lot more than usual: not at all 9. Thoughts that you would be better off or of hurting yourself in some way: not at all Total score: 4 Depression Screening Interpretation: Negative Depression Screening Done: Yes 18866 - PHQ-9 Billing: Yes Source: Developed by Drs. Waqas August, Ksenia Mcconnell, Alexys Weiner and colleagues, with an educational dwaine from [employer]. Thrive Questionnaire Date Thrive assessed: 03/15/24 I am a: Patient What is your living situation today?: I have a steady place to live Within the past 12 months, did the food you bought not last and you didn't have the money to get more?: Never true Within the past 12 months, did you worry whether your food would run out before you got money to buy more?: Sometimes True Do you have trouble paying for medicines?: No Do you have trouble getting transportation to medical appointments?: No Do you have trouble paying your heating and electricity bill?: No Do you have trouble taking care of your child, family member or friend?: No Do you have trouble with day-to-day activities such as bathing, preparing meals, shopping, managing finances, etc.?: No Are you currently unemployed and looking for a job?: No Are you interested in more education?: Yes Please select the resources that you would like help with: None Currently or been in a relationship where the following occur: I choose not to answer THRIVE Score: 1 AUDIT C Alcohol Use Questionnaire (AUDIT-C) 1. How often do you have a drink containing alcohol?: 2-4 times a month 2. How many drinks containing alcohol do you have on a typical day when you are drinking?: 1 or 2 3. How often do you have six or more drinks on one occasion?: Never Total Score: 2 Score Reviewed/Action Taken: Yes SALLY-7 AMB Questionnaire SALLY-7 Date SALLY - 7 assessed: 03/15/24 Feeling nervous, anxious, or on edge: 3 = Nearly every day Not being able to stop or control worryin = More than half the days Worrying too much about different things: 2 = More than half the days Trouble relaxin = Nearly every day Being so restless that it is hard to sit still: 0 = Not at all Becoming easily annoyed or irritable: 2 = More than half the days Feeling afraid as if something awful might happen: 1 = Several days Total SALLY-7 score (0-4 normal; 5-9 mild; 10-14 moderate; 15-21 severe): 13 Source: Developed by Drs. Waqas August, Ksenia Mcconnell, Alexys Weiner and colleagues, with an educational dwaine from [employer]. Review of Systems Const Denies chills, Denies fatigue, Denies fever(s), Denies headache(s) and Denies malaise Eyes Denies blurry vision, Denies change in vision, Denies irritation and Denies itchy eyes ENT Denies dysphagia, Denies dizziness, Denies otalgia, Denies headache(s), Denies nasal congestion, Denies neck pain, Denies odynophagia, Denies sinus pain and Denies sore throat Card Denies chest pain, Denies rapid heart rate, Denies irregular heart rhythm, Denies palpitations and Denies dyspnea Resp Denies chest congestion, Denies cough, Denies dyspnea and Denies wheezing GI Denies abdominal pain, Denies bloating, Reports constipation, Denies dysphagia, Denies heartburn, Denies diarrhea, Denies nausea, Denies odynophagia and Denies vomiting Reports abnormal menses (irregular - see HPI), Denies hematuria, Denies urinary frequency, Denies dysuria, Denies urinary incontinence and Denies urinary urgency Musc Reports back pain (recurrent, especially over the lower back), Denies arthralgias, Denies joint swelling, Denies muscle weakness and Denies neck pain Skin/Breast Denies breast pain, Denies breast mass, Denies change in pigmentation, Denies lesions, Denies rash and Denies unusual bruising Neuro Denies dizziness, Denies headache(s) and Denies paresthesias Psych Denies anxiety and Denies depression Endo Denies fatigue and Denies palpitations Darrian/Lymph Denies easy bruising Aller/Immun Denies itchy eyes and Denies wheezing Physical exam (Primary Care) Vital Signs: Last Vital Signs Pulse 78 03/15/24 13:01 BP 118/76 03/15/24 13:01 Pulse Ox 99 03/15/24 13:01 Oxygen Delivery Method Room Air 03/15/24 13:01 BMI result Body Mass Index 34.8 Tobacco/Smoking Status: Tobacco use Status Tobacco use date assessed 03/15/24 03/15/24 13:08 Patient Tobacco Use Status Never used Tobacco 03/15/24 13:08 e-Cigarette/Vaping Use Never Used 03/15/24 13:08 PHQ-9: PHQ-9 Score PHQ-9: Total score 4 03/15/24 13:08 Depression Screening Interpretation: Negative Thrive Assessment: Date of Thrive Assessment Date Thrive assessed 03/15/24 03/15/24 13:08 Currently or been in a relationship where the following occur: I choose not to answer Const General: no acute distress, alert and awake Orientation/consciousness: patient oriented x3 HENMT Head: Yes normocephalic and Yes atraumatic Ears: external ears normal, TM's normal bilaterally and EAC's normal General nose exam: No nasal discharge present Face and sinus: Yes normal facial exam and Yes sinuses nontender Teeth and gingiva: dentition normal Throat: Yes posterior oropharynx normal and Yes tonsils normal (no TP congestion) Eyes Eyelids: Yes eyelids normal Conjunctivae: conjunctivae normal Pupils: Equal, round and reactive pupils present EOM: EOMs intact bilaterally Neck Neck: Yes no lymphadenopathy and Yes supple Thyroid: Thyroid normal Resp Auscultation: clear to auscultation bilaterally, no rales and no wheezes Cardio Rate: regular rate Rhythm: regular rhythm Heart sounds: no murmurs GI Palpation (GI): Soft to palpation, nontender and No hepatosplenomegaly present Auscultation: normal bowel sounds General: Yes no CVA tenderness Back/Spine/Pelvis Back: no CVA tenderness Thoracic/Lumbar Spine: paraspinal muscle tenderness bilaterally in the mid lumbar and in the lower lumbar, No thoracic spinal tenderness and No lumbar sp inal tenderness Sacroiliac joints: bilaterally nontender Skin Lesions: no lesions Rashes: no rashes Neuro General: patient oriented x3, moves all extremities, no focal motor deficits and CN's II-XI intact bilaterally Cranial nerves: Yes Equal, round and reactive pupils present Cognition (Neuro): normal cognition Gait exam (Neuro): Normal gait present Extrem General: Yes no clubbing, cyanosis or edema Coding Level of Care Code Est Pt Prev Care 18-39y(06334) Diagnoses Annual physical exam Z00.00 Irregular periods/menstrual cycles N92.6 Constipation, unspecified constipation type K59.00 Constipation type: unspecified constipation type Bilateral low back pain, unspecified chronicity, unspecified whether sciatica present M54.50 Chronicity: unspecified Back pain laterality: bilateral Sciatica presence: unspecified whether sciatica present Class 1 obesity E66.811 Assessment & Plan Assessment & Plan (1) Annual physical exam: Code(s): Z00.00 - Encounter for general adult medical examination without abnormal findings Category: Medical Plan: Check labs She is up-to-date with her annual gynecology exam and pap smear (2) Irregular periods/menstrual cycles: Code(s): N92.6 - Irregular menstruation, unspecified Category: Medical Plan: Have advised patient to discuss this further at her next gynecology exam and if necessary, to request for an appointment with Dr. Bowen for further evaluation as this may potentially make it more difficult for her to conceive in the future if she plans to start a family Per request, will include a test to today's labs (3) Constipation: Code(s): K59.00 - Constipation, unspecified Category: Medical Qualifiers: Constipation type: unspecified constipation type Qualified Code(s): K59.00 - Constipation, unspecified Plan: Discussed increased oral fluids and dietary fiber intake to help manage her constipation better Patient states that she takes some OTC Probiotics at times, which help somewhat Have advised that she can also take some OTC stool softeners when needed but if this persists or gets worse, then she should seek medical attention for further evaluation (4) Low back pain: Code(s): M54.50 - Low back pain, unspecified Category: Medical Qualifiers: Chronicity: unspecified Back pain laterality: bilateral Sciatica presence: unspecified whether sciatica present Qualified Code(s): M54.50 - Low back pain, unspecified Plan: Thoracic and lumbar spine x-rays done last year in January 2023 came out normal Have advised patient that poor posture is the most likely cause of her recurrent low back pain for years and that doing some back exercises regularly can help her better manage her low back pain Patient states that she was given some pamphlets and instructions on back exercises that she can do - she just has not yet gotten to doing them regularly yet (5) Class 1 obesity: Code(s): E66.811 - Obesity, class 1 Category: Medical Plan: Reinforced diet/exercise as tolerated/lose weight Plan To return in 1 year for her next annual physical examination Orders: Orders Complete Blood Count Auto Diff Today D64.9 - Anemia, unspecified, Z00.00 - Encounter for general adult medical examination without abnormal findings Cholesterol Today Z00.00 - Encounter for general adult medical examination without abnormal findings TSH reflex Free T4 Today E78.00 - Pure hypercholesterolemia, unspecified, Z00.00 - Encounter for general adult medical examination without abnormal findings HCG Quantitative Today N91.1 - Secondary amenorrhea, Z00.00 - Encounter for general adult medical examination without abnormal findings Comprehensive Met. Panel Today Z00.00 - Encounter for general adult medical examination without abnormal findings UA CC w/rflx Micro + Cult Today R30.0 - Dysuria, Z00.00 - Encounter for general adult medical examination without abnormal findings Vitamin D 25-OH Total Today E55.9 - Vitamin D deficiency, unspecified, Z00.00 - Encounter for general adult medical examination without abnormal findings
== END 2024-03-15 13:45 | disposition home or self-care (01) ==
PROVIDERS: PCP Internal Medicine; Visit Provider Internal Medicine
DX: Z00.00 Encounter for general adult medical examination without abnormal findings (principal); N92.6 Irregular menstruation, unspecified; K59.00 Constipation, unspecified; M54.50 Low back pain, unspecified; E66.811 Obesity, class 1

== ENCOUNTER → 2024-03-15 12:55 | Outpatient (BNVA) | payer OTHER, SELFPAY | PROVIDERS: PCP Internal Medicine; Visit Provider Internal Medicine ==

== ENCOUNTER 2024-03-16 07:09 | Outpatient (REF) | payer OTHER, SELFPAY ==
[2024-03-16 07:30] LABS: MANUAL DIFF FLAG NO
[2024-03-16 07:35] LABS: Basophils Absolute Auto 0.1 X10*3/uL (0.0-0.2); Basophils Percent Auto 0.6 % (0-2); Eosinophils Absolute Auto 0.2 X10*3/uL (0.0-0.4); Eosinophils Percent Auto 2.2 % (0-4); Hematocrit 40.4 % (37.0-47.0); Hemoglobin 12.5 g/dl (12.0-16.0); Imm Gran Abs Auto 0.02 X10*3/uL (0.00-0.03); Imm Gran Pct Auto 0.2 % (0.0-0.4); Lymphocytes Absolute Auto 3.1 X10*3/uL (1.2-4.9); Lymphocytes Percent Auto 35.5 % (20-40); Mean Corpuscular HGB Conc 30.9 g/dl (31.0-35.0); Mean Corpuscular Hemoglobin 22.6 pg (27.0-33.0); Mean Corpuscular Volume 72.9 fL (80.0-98.0); Mean Platelet Volume 10.6 fL (9.4-12.3); Monocytes Absolute Auto 0.5 X10*3/uL (0.1-1.2); Monocytes Percent Auto 5.9 % (2-11); Neutrophils Absolute Auto 4.8 x10*3/uL (2.0-8.3); Neutrophils Percent Auto 55.6 % (45-73); Platelet Count 317 X10*3/uL (160-400); Red Blood Count 5.54 X10*6/uL (4.20-5.50); Red Cell Distribution Width 14.5 % (11.0-16.0); White Blood Count 8.7 X10*3/uL (4.8-10.8)
[2024-03-16 08:12] LABS: Alanine Aminotransferase 26 U/L (0-31); Albumin Level 4.2 g/dL (3.5-5.0); Alkaline Phosphatase 65 U/L (39-117); Anion Gap 11 (12-20); Aspartate Amino Transferase 15 U/L (5-31); Bilirubin Total 0.4 mg/dL (0.0-1.0); Blood Urea Nitrogen 14 mg/dL (9-16); Calcium 9.3 mg/dL (8.4-10.2); Carbon Dioxide 26 mmol/L (22-29); Chloride 107 mmol/L (96-108); Cholesterol 167 mg/dL (<200); Estimated Glomerular Filt Rate > 60; Glucose Random 102 mg/dL (60-115); Potassium 3.8 mmol/L (3.3-5.1); Sodium 140 mmol/L (135-145); Total Protein 7.5 g/dL (6.5-8.0)
[2024-03-16 08:19] LABS: Appearance Urine Cloudy; Color Urine Dark Yellow; Glucose Urine UA Negative (Negative); Leukocyte Esterase Urine Negative (Negative); Nitrite Urine Negative (Negative); PH 5.5 (5.0-9.0); Specific Gravity - Urine >= 1.030 (1.005-1.025); UMIC TRIGGER UACC YES; Urine Blood Trace (Negative); Urine Ketones Negative (Negative); Urine Protein 30 (1+) mg/dL (Neg-Trace)
[2024-03-16 08:24] LABS: Bacteria Urine 2+ (None Seen); Squamous Epithelial Cell Urine >20 /HPF (0-2); UACC Culture Trigger YES
[2024-03-16 08:25] LABS: HCG Quantitative < 2 mIU/mL; Vitamin D 25-OH Total 12.2 ng/mL (>30)
== END 2024-03-16 07:10 | disposition home or self-care (01) ==
LOC: HO.LAB 07:09
PROVIDERS: PCP Internal Medicine; Visit Provider Internal Medicine
DX: Z00.00 Encounter for general adult medical examination without abnormal findings (principal); D64.9 Anemia, unspecified; E78.00 Pure hypercholesterolemia, unspecified; N91.1 Secondary amenorrhea; E55.9 Vitamin D deficiency, unspecified; R30.0 Dysuria
CPT/HCPCS: 36415; 80053; 81001; 82306; 82465; 84443; 84702; 85025; 87086

== ENCOUNTER 2024-04-05 13:19 | Outpatient (AMB) | payer OTHER, SELFPAY ==
[2024-04-05 13:21] VITALS: BP 118/70; BMI 34.8
--- NOTE | 2024-04-05 13:21 | MHC.OFFVIS ---
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 Information Interpreted: clinical only Allergies No Known Allergies Allergy (Verified 04/05/24 13:23) Medication List - Last Reconciled 04/05/24 by Sherrell Lynn CNM No Known Home Meds Is last menstrual period known: Yes Last menstrual period: 03/28/24 HPI HPI irregular menses: Details: Here because she had a very heavy period unusual clots last week and she is actually if she might have had a miscarriage she has a history of irregular periods she was given pills years ago and she says she gained 30 or 40 lb while she was on them so she stopped them she was going through a lot of stuff at the time. She is now with a boyfriend and they started trying to get in January. She went to [place] on vacation also in January. She does not have any idea when her previous periods were she does not keep track at all because she can go months without them. She had lost weight down to 160 and then in the last month or so she has gained back 10 lb she and her boyfriend have been trying in the last month or so and things are good with him. They are both trying to be healthier and she smokes a little weed and she has told needs to cut down to. She does take a women's 1 a day vitamin every day. Her previous menses were February 03 to . On February 08 she went to [place] and she is stressing about whether not she had have her periods when she went to [facility] but it is just about ending. Then she started bleeding on March 28 and she bled until yesterday this is the bleeding that was very heavy with clots She had been anxious about whether not she is getting because she had been doing home tests and they were all negative even though she just started trying in January so she asked her primary for a serum HCG and he did it on 03/16 and it was negative. [facility] Medical History Class 1 obesity Irregular periods/menstrual cycles Surgical History No pertinent past surgical history Family History Mother Mental health disorder Substance use disorder Father Diabetes Sister Diabetes Maternal Aunt Breast cancer Social History Housing: House Alcohol intake: current Alcohol intake frequency: holidays/special occasions only Alcohol type: hard liquor Patient Tobacco Use Status: Never used Tobacco e-Cigarette/Vaping Use: Never Used Second Hand Smoke Exposure: No Substance Use Type: Marijuana service: No Current occupational status: employed Current occupational exposures/hazards: No Cognitive needs: No Hearing needs: No Vision needs: No Female Reproductive History Menstrual Age of Menarche: 10 Duration of menses: 3-5 days Date of last menstrual period: 03/28/24 control method: none Total pregnancies: 1 Physical Exam Vital Signs: Last Vital Signs BP 118/70 04/05/24 13:21 BMI result Body Mass Index 34.8 Results AMB Test Urine AMB Test Urine Negative Last Edit by Roshni Lovett CMA on 04/05/24 14:51 Results Reviewed Results Reviewed: Name: Theresa Dyson Age/Sex: 28/F Attending: Sherrell Lynn CNM : 1995 Submitted by: Sherrell Lynn CNM Copies to: Mitch Engel MD MR #: [id number] Status: DEP REF Collected: 09/23/23 Location: [facility] Received: 09/25/23 Interpretation Satisfactory for evaluation. Negative for intraepithelial lesion or malignancy. Fungal organisms consistent with Cesilia species. Moderate inflammation. Clinical Information LMP: 09/07/23 Previous PAP test: Unknown date/findings Material Received ThinPrep-Cervical Copies To Mitch Engel MD [address] [place] [address] Sherrell Lynn [address] [place] [id number] Electronically Signed By: Lynette Fuentes 10/17/23 1142 The Pap Test is a screening procedure with the inherent possibility of both false negative and false positive results. Results should be interpreted in the context of historic and current clinical findings. Reliability of the Pap Test is enhanced by performing the test on a regular repetitive basis. Patient: Theresa Dyson Age/Sex: 28/F MR#: [id number] Page 1 of 1 Name: Theresa Dyson Age/Sex: 29/F : 1995 Unit#: [id number] Attend Dr: Mitch Engel MD Re03/16/24 Status: DEP REF Location: [facility] Disch: SPEC : [id number] MELINA: 03/16/24 STATUS: COMP REQ : [id number] RECD: 03/16/[address] [facility] [address]: Mitch Engel MD COMP: 03/16/24 ENTERED: 03/16/[address] [facility] [address]: ORDERED: CMP, Chol, Vitamin D 25-OH, TSH Rflx, HCG Quant Test Result Flag Reference Sodium 140 135-145 mmol/L Potassium 3.8 3.3-5.1 mmol/L CL 107 96-108 mmol/L CO2 26 22-29 mmol/L Gap 11 L 12-20 BUN 14 9-16 mg/dL Creat 0.72 0.5-1.4 mg/dL EGFR > 60 NOTE: For -Uz[place] individuals, multiply the result by 1.210. Chronic Kidney Disease: Estimated GFR < 60 mL/min/1.73m2 Severe Kidney Disease: Estimated GFR < 15 mL/min/1.73m2 Glucose, Random 102 60-115 mg/dL CA 9.3 8.4-10.2 mg/dL Total Bili 0.4 0.0-1.0 mg/dL AST (GOT) 15 5-31 U/L ALT (GPT) 26 0-31 U/L Protein, Total 7.5 6.5-8.0 g/dL Alb 4.2 3.5-5.0 g/dL Cholesterol 167 <200 mg/dL Desirable Cholesterol: less than 200 mg/dL Borderline High Cholesterol: 200-239 mg/dL High Cholesterol: greater than 239 mg/dL Alk Phos 65 39-117 U/L Vit D 25-OH Tot 12.2 L >30 ng/mL Health Based Reference Values* < 20 ng/mL Deficient 20-30 ng/mL Insufficient > 30 ng/mL Sufficient *Dorinda BOLANOS. N Engl J Med. 2007;357:266-280 Care must be taken in interpreting Vitamin D results from different laboratories and methodologies. Published data demonstrated that results from patients undergoing hemodialysis may show a negative bias when tested with various automated 25-OH vitamin D assays when compared to LC-MS/MS. When testing samples from patients whose predominant form of Vitamin D is Vitamin D2, such as patients receiving Vitamin D2 supplementation, results that are subtherapeutic should be confirmed with another method such as LC-MS/MS. TSH 1.40 0.32-4.0 uIU/mL HCG Quant < 2 mIU/mL Weeks post LMP Approximate hCG (Last Menstrual Period) Range (mIU/ml) 3 - 4 weeks 9 - 130 4 - 5 weeks 75 - 2,600 5 - 6 weeks 850 - 20,800 6 - 7 weeks 4000 - 100,200 7 - 12 weeks 11,500 - 289,000 12 - 16 weeks 18,300 - 137,000 16 - 29 weeks (2nd trimester) 1,400 - 53,000 29 - 41 weeks (3rd trimester) 940 - 60,000 The Shaw B-hCG assay is used for the early detection of ; it cannot be used to diagnose any condition unrelated to . If a B-hCG level is not supported by the clinical evidence, results should be confirmed by an alternative method (qualitative urine hCG, for example). END OF REPORT Assessment & Plan Assessment & Plan (1) Class 1 obesity: Code(s): E66.811 - Obesity, class 1 Category: Medical (2) Cervical cancer screening: Comment: 09/23/2023 Pap is negative (with yeast which was treated) Code(s): Z12.4 - Encounter for screening for malignant neoplasm of cervix Category: Medical (3) History of irregular menstrual cycles: Comment: Discussed relationship to weight, was on OCPs does not want to be now... Code(s): Z87.42 - Personal history of other diseases of the female genital tract Category: Medical (4) Patient desires : Code(s): Z31.9 - Encounter for procreative management, unspecified Category: Medical Plan Reviewed patient's history of irregular menses detail. Reviewed that the most important thing she can do to help herself get is to lose weight. Discussed that control pills not have caused her to gain 30-40 lb and then it was most likely other circumstances. Discussed that when somebody is overweight they are having extra hormones produced and this tells her body not ovulate on a regular basis but this does NOT MEAN THAT SHE CAN NOT GET AND SHE SHOULD NEVER PUT HERSELF IN HIS POSITION WHERE SHE HAS UNPROTECTED SEX AND TELLS HERSELF SHE CAN NOT GET . Reviewed that it is more random she may ovulate and that is the challenge reviewed signs and symptoms of ovulation reviewed that sometimes when people take control pills when they stopped them there periods may stay regular for a while and sometimes they ovulate but there is no guarantee this was not her experience past either Discussed that the most important thing she can do lose weight but then also keep very good track menses it would be appropriate to do test periodically and menses are missed but not obsessive discussed healthy habits getting ready for we will give patient did BMI chart to help her with her goals hCG today is negative Discussed that even if she seen by [facility] infertility services the 1st thing they would recommend is weight loss and keeping track of her menses. If she ever misses more than 3 months at a time then it would be appropriate to evaluate that and consider medication to bring on her menses but she would have to have an they get a test and avoid unprotected intercourse for period of time. Orders: Orders AMB HCG Urine Test Today Z32.02 - Encounter for test, result negative Coding Level of Care Code Est Pt Level 3 (39206) Diagnoses Class 1 obesity E66.811 Cervical cancer screening Z12.4 History of irregular menstrual cycles Z87.42 Patient desires Z31.9
== END 2024-04-05 14:10 | disposition home or self-care (01) ==
LOC: HO.HWSM 13:19
PROVIDERS: PCP Internal Medicine; Visit Provider Advanced Practice Midwife
DX: N92.6 Irregular menstruation, unspecified (principal); E66.811 Obesity, class 1; Z68.34 Body mass index [BMI] 34.0-34.9, adult; Z87.42 Personal history of other diseases of the female genital tract
CPT/HCPCS: 99213

== ENCOUNTER 2024-12-14 09:26 | Outpatient (AMB) | payer OTHER, SELFPAY ==
--- NOTE | 2024-12-14 09:49 | MHC.OFFVIS ---
Vital Signs 12/14/24 09:57 Height 5 ft Weight 182 lb BMI 35.5 BP 118/72 Intake Visit Reasons: irregular period /spotting Intake Note: Per patient had period November 19 to November 28, had period again December 07 until present. With spotting in between periods. 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 She has skipped cycles up to six-month and over the last 2-3 weeks has reported prolonged bleeding episodes. History of menarche at age 10 always had irregular cycles. History of facial acne. Not on control as she would like to have a future . Currently taking multivitamins with folic acid. She has never had a workup for PCOS. [facility] Medical History Abnormal uterine bleeding (AUB) Class 1 obesity Irregular periods/menstrual cycles Surgical History No pertinent past surgical history Family History Mother Mental health disorder Substance use disorder Father Diabetes Sister Diabetes Maternal Aunt Breast cancer Social History Housing: House Alcohol intake: current Alcohol intake frequency: holidays/special occasions only Alcohol type: hard liquor Patient Tobacco Use Status: Never used Tobacco e-Cigarette/Vaping Use: Never Used Second Hand Smoke Exposure: No Substance Use Type: Marijuana service: No Current occupational status: employed Current occupational exposures/hazards: No Cognitive needs: No Hearing needs: No Vision needs: No Female Reproductive History Menstrual Age of Menarche: 10 Duration of menses: >10 days Date of last menstrual period: 12/07/24 control method: none Total pregnancies: 1 Ab induced: 1 Review of Systems Const All systems reviewed & are unremarkable except as noted in HPI and below Physical Exam Vital Signs: Last Vital Signs BP 118/72 12/14/24 09:57 BMI result Body Mass Index 35.5 Const General: cooperative, healthy appearing and no acute distress Orientation/consciousness: patient oriented x3 GI Inspection: Yes normal to inspection Palpation (GI): Soft to palpation and Other GI palpation findings present (Nontender) Rectal Exam - Female: visual inspection normal General: Yes bladder normal to palpation External Female Exam: normal appearance of the urethra Speculum Exam - Vagina: normal appearance of the vagina, normal palpation, normal vaginal discharge and vaginal bleeding Speculum Exam - Cervix: normal appearance of the cervix and normal palpation Bimanual exam- vagina & uterus: normal bimanual exam, normal palpation, uterine size normal, bladder normal to palpation, normal palpation, uterine shape normal and non-tender Bimanual Exam- Adnexa, other: normal adnexae OB/external & speculum: vaginal bleeding Neuro General: patient oriented x3 Results AMB Test Urine AMB Test Urine Negative Last Edit by Jennifer Petty LPN on 12/14/24 10:05 Results Reviewed Results Reviewed: Laboratory Last Values Tst Clinic Negative 12/14/24 10:03 Assessment & Plan Assessment & Plan (1) Abnormal uterine bleeding (AUB): Code(s): N93.9 - Abnormal uterine and vaginal bleeding, unspecified Category: Medical Plan Counseled regarding workup for PCOS and AUB to include lab work, pelvic ultrasound, possible EMB. Continue multivitamins. Report any positive test. The patient expressed understanding and agreement with the plan of care. All of her questions and concerns were addressed to the best of my ability. This note is constructed using voice recognition software. While every effort has been made to ensure accuracy, warehouse operations manager errors may have been included. Orders: Orders Complete Blood Count no Diff Today L70.9 - Acne, unspecified, N93.9 - Abnormal uterine and vaginal bleeding, unspecified 17 Hydroxyprogesterone Today L70.9 - Acne, unspecified, N93.9 - Abnormal uterine and vaginal bleeding, unspecified Testosterone, Free/Total Today L70.9 - Acne, unspecified, N93.9 - Abnormal uterine and vaginal bleeding, unspecified CT NG by PCR Vag/Cerv Today N93.9 - Abnormal uterine and vaginal bleeding, unspecified AMB HCG Urine Test Today Z32.02 - Encounter for test, result negative US pelvic and transvaginal Today L70.9 - Acne, unspecified, N93.9 - Abnormal uterine and vaginal bleeding, unspecified Thyroid Stimulating Hormone Today L70.9 - Acne, unspecified, N92.1 - Excessive and frequent menstruation with irregular cycle, N93.9 - Abnormal uterine and vaginal bleeding, unspecified Prolactin Today L70.9 - Acne, unspecified, N93.9 - Abnormal uterine and vaginal bleeding, unspecified Bacterial Vaginosis Panel Today N93.9 - Abnormal uterine and vaginal bleeding, unspecified Coding Level of Care Code Est Pt Level 3 (32908) Diagnoses Abnormal uterine bleeding (AUB) N93.9
[2024-12-14 09:57] VITALS: BP 118/72; BMI 35.5
== END 2024-12-14 10:33 | disposition home or self-care (01) ==
LOC: HO.HWS 09:26
PROVIDERS: PCP Internal Medicine; Visit Provider Advanced Practice Midwife
DX: Z32.02 Encounter for pregnancy test, result negative (principal); N93.9 Abnormal uterine and vaginal bleeding, unspecified
CPT/HCPCS: 99213

== ENCOUNTER 2024-12-14 09:26 | Outpatient (REF) | payer OTHER, SELFPAY ==
[2024-12-14 20:49] LABS: Bacterial Vaginosis PCR POSITIVE (Negative); Candida Group PCR NOT DETECTED (Not Detect); Candida glab krusei PCR NOT DETECTED (Not Detect); Trichomonas vaginalis PCR NOT DETECTED (Not Detect)
[2024-12-14 21:36] LABS: CT PCR NOT DETECTED (Not Detect.); NG PCR NOT DETECTED (Not Detect.)
== END 2024-12-14 09:27 | disposition home or self-care (01) ==
LOC: HO.LNP 09:26
PROVIDERS: PCP Internal Medicine; Visit Provider Advanced Practice Midwife
DX: N92.1 Excessive and frequent menstruation with irregular cycle (principal); N93.9 Abnormal uterine and vaginal bleeding, unspecified; L70.9 Acne, unspecified; Z32.02 Encounter for pregnancy test, result negative; Z79.899 Other long term (current) drug therapy
CPT/HCPCS: 81025; 81515; 87491; 87591

== ENCOUNTER 2024-12-14 14:09 | Outpatient (REF) | payer OTHER, SELFPAY ==
[2024-12-14 15:40] LABS: Hematocrit 40.0 % (37.0-47.0); Hemoglobin 12.4 g/dl (12.0-16.0); Mean Corpuscular HGB Conc 31.0 g/dl (31.0-35.0); Mean Corpuscular Hemoglobin 22.1 pg (27.0-33.0); Mean Corpuscular Volume 71.3 fL (80.0-98.0); NRBC Abs Auto 0.000 X10*3/uL (0.0-0.012); NRBC Pct Auto 0.0 /100WBC (0.0-0.2); Platelet Count 298 X10*3/uL (160-400); Red Blood Count 5.61 X10*6/uL (4.20-5.50); White Blood Count 7.7 X10*3/uL (4.8-10.8)
[2024-12-14 16:22] LABS: Thyroid Stimulating Hormone 1.25 uIU/mL (0.32-4.0)
[2024-12-19 14:34] LABS: Testosterone, Free 6.1 pg/mL (0.1-6.4)
== END 2024-12-14 14:10 | disposition home or self-care (01) ==
LOC: HO.LAB 14:09
PROVIDERS: PCP Internal Medicine; Visit Provider Advanced Practice Midwife
DX: N92.1 Excessive and frequent menstruation with irregular cycle (principal); N93.9 Abnormal uterine and vaginal bleeding, unspecified; L70.9 Acne, unspecified
CPT/HCPCS: 36415; 83498; 84146; 84402; 84403; 84443; 85027

== ENCOUNTER 2025-01-03 14:07 | Outpatient (AMB) | payer OTHER, SELFPAY ==
--- NOTE | 2025-01-03 14:15 | A.OFFVIS_ITS ---
Vital Signs 01/03/25 14:16 Height 5 ft Weight 182 lb BMI 35.5 BP 104/64 Blood Pressure Location Rt brachial Position Sitting Intake Visit Reasons: follow up AUB/Labs Jewelry Maker Required: No Parts Designer: Parts Designer Present Allergies No Known Allergies Allergy (Verified 01/03/25 14:22) Medication List - Last Reconciled 01/03/25 by Jeannette Stern LPN No Known Home Meds Is last menstrual period known: No (ongoing menses ) Post menopausal: No Patient : No Do you need a note to return to daycare/school/sports/work: Yes HPI Comments Details: Patient is here today for control consult. History of AUB, bleeds daily, light amount changes liner pad 5 times mostly to refresh. Previously tried to conceive was unsuccessful, used Junel in the past and is considering restarting. Last UPI 08/2024. UPT is negative. History of vitamin-D deficiency currently taking a multivitamin. Denies any symptoms of BV, was not treated. Declines pelvic exam today. [facility] Medical History Class 1 obesity Surgical History No pertinent past surgical history Family History Mother Mental health disorder Substance use disorder Father Diabetes Sister Diabetes Maternal Aunt Breast cancer Social History Housing: House Alcohol intake: current Alcohol intake frequency: holidays/special occasions only Alcohol type: hard liquor Patient Tobacco Use Status: Never used Tobacco e-Cigarette/Vaping Use: Never Used Second Hand Smoke Exposure: No Substance Use Type: Marijuana service: No Current occupational status: employed Current occupational exposures/hazards: No Cognitive needs: No Hearing needs: No Vision needs: No Female Reproductive History Menstrual Age of Menarche: 10 Duration of menses: 3-5 days control method: none Total pregnancies: 1 Number of Living Children: 0 Ab induced: 1 Review of Systems Const All systems reviewed & are unremarkable except as noted in HPI and below Endo Reports no additional complaints Physical Exam Vital Signs: Last Vital Signs BP 104/64 01/03/25 14:16 BMI result Body Mass Index 35.5 Const General: cooperative, healthy appearing and no acute distress Psych Appearance: well kempt Attitude: cooperative Thought process: Normal thought process present Results AMB Test Urine AMB Test Urine Negative Last Edit by Jeannette Stern LPN on 01/03/25 14:26 Results Reviewed Results Reviewed: Laboratory Last Values Tst Clinic Negative 01/03/25 14:26 Assessment & Plan Assessment & Plan (1) Abnormal uterine bleeding (AUB): Code(s): N93.9 - Abnormal uterine and vaginal bleeding, unspecified Category: Medical Plan Discussed: Abnormal bleeding pattern, we will attempt to move up ultrasound appointment prior to her vacation (01/25/25). Advised to start treatment for BV. Counseled: Advised to complete all medication. Possible GI upset-take medication with food. Avoid vinegar products-salad dressing, and pickles. NO ALCOHOL use during treatment and including up to 48 hours after medication is completed. No UPT. Report any heavy prolonged bleeding episodes. 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 Follow up pending ultrasound results. The patient expressed understanding and agreement with the plan of care. All of her questions and concerns were addressed to the best of my ability. Medications: New metronidazole 500 mg PO Q12H 14 tabs 0RF 7 days Coding Level of Care Code Est Pt Level 3 (18846) Diagnoses Abnormal uterine bleeding (AUB) N93.9
[2025-01-03 14:16] VITALS: BP 104/64; BMI 35.5
== END 2025-01-03 14:59 | disposition home or self-care (01) ==
LOC: HO.HWS 14:07
PROVIDERS: PCP Internal Medicine; Visit Provider Advanced Practice Midwife
DX: N93.9 Abnormal uterine and vaginal bleeding, unspecified (principal)
CPT/HCPCS: 99213

== ENCOUNTER 2025-01-05 14:29 | Outpatient (REF) | payer OTHER, SELFPAY ==
--- NOTE | ~2025-01-05 | US_ITS ---
EXAMINATION: US PELVIS TRANSABDOMINAL AND TRANSVAGINAL HISTORY: N93.9 - Abnormal uterine and vaginal bleeding, unspecified COMPARISON: There are no prior studies available for comparison. TECHNIQUE: Transabdominal and endovaginal real-time 2D dominguez-scale ultrasound was performed. FINDINGS: Uterus: The uterus is normal in size, measuring 7.7 x 3.2 x 4.5 cm. Myometrium has a normal echotexture. No fibroids are identified. Endometrium: The endometrial stripe measures 5 mm in thickness. There are nabothian cysts in the cervix. Right ovary: The right ovary measures 5.0 x 3.0 x 2.5 cm. The right ovary is normal in size and echotexture. Multiple follicles are noted. Left ovary: The left ovary measures 3.3 x 1.5 x 1.9 cm. The left ovary is normal in size and echotexture. Pelvic fluid: none. US/US pelvic and transvaginal IMPRESSION: Unremarkable pelvic ultrasound. Electronically signed by: Waqas Dacosta MD 01/05/2025 03:29 PM EDT
== END 2025-01-05 14:30 | disposition home or self-care (01) ==
LOC: HO.US 14:29
PROVIDERS: PCP Internal Medicine; Visit Provider Advanced Practice Midwife
DX: N93.9 Abnormal uterine and vaginal bleeding, unspecified (principal); L70.9 Acne, unspecified
CPT/HCPCS: 76830; 76856

== ENCOUNTER → 2025-01-05 14:30 | Outpatient (BNV) | payer OTHER, SELFPAY | PROVIDERS: PCP Internal Medicine; Visit Provider Radiology Diagnostic Radiology | DX: N93.9 Abnormal uterine and vaginal bleeding, unspecified (principal) | CPT/HCPCS: 76830; 76856 ==

== ENCOUNTER 2025-01-24 08:59 | Outpatient (AMB) | payer OTHER, SELFPAY ==
--- NOTE | 2025-01-24 08:59 | MHC.OFFVIS ---
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 Time spent included review of pertinent office notes in the electronic health record; review of laboratory and imaging results; review of personal family medical history; discussing diagnosis and plan of care with the patient; documenting the encounter in the EMR. Patient presents to discuss: Ultrasound follow up, history of AUB. Previous labs ordered are normal range. Treated for BV. Plans a future , not at all interested in control. Currently taking folic acid. [facility] Medical History Class 1 obesity Surgical History No pertinent past surgical history Family History Mother Mental health disorder Substance use disorder Father Diabetes Sister Diabetes Maternal Aunt Breast cancer Social History Housing: House Alcohol intake: current Alcohol intake frequency: holidays/special occasions only Alcohol type: hard liquor Patient Tobacco Use Status: Never used Tobacco e-Cigarette/Vaping Use: Never Used Second Hand Smoke Exposure: No Substance Use Type: Marijuana service: No Current occupational status: employed Current occupational exposures/hazards: No Cognitive needs: No Hearing needs: No Vision needs: No Female Reproductive History Menstrual Age of Menarche: 10 Date of last menstrual period: 01/22/25 Review of Systems Const All systems reviewed & are unremarkable except as noted in HPI and below Endo Reports no additional complaints Physical Exam Const General: cooperative, healthy appearing and no acute distress Psych Appearance: well kempt Attitude: cooperative Thought process: Normal thought process present Telehealth Telehealth Telehealth Platform: Doximity Location of provider rendering services: practice address Location of patient: address on file Patient Identification confirmed using: Name, : Yes Telehealth method: video Patient verbally consented to treatment: Yes Patient verbally consented to billing insurance company: Yes Patient informed of any privacy concerns related to visit: Yes Results Reviewed Results Reviewed: [address] [address] Ultrasound Report Signed Patient: Theresa Dyson MR#: [id number] : 1995 Acct:[id number] Age/Sex: 29 / F ADM Date: 01/05/25 Loc: [facility].US Attending Dr: Briseyda Hunt CNM Ordering Physician: Briseyda Hunt CNM Date of Service: 01/05/25 Procedure(s): US pelvic and transvaginal Accession Number(s): [id number] cc: Mitch Engel MD; Briseyda Hunt CNM~ EXAMINATION: US PELVIS TRANSABDOMINAL AND TRANSVAGINAL HISTORY: N93.9 - Abnormal uterine and vaginal bleeding, unspecified COMPARISON: There are no prior studies available for comparison. TECHNIQUE: Transabdominal and endovaginal real-time 2D dominguez-scale ultrasound was performed. FINDINGS: Uterus: The uterus is normal in size, measuring 7.7 x 3.2 x 4.5 cm. Myometrium has a normal echotexture. No fibroids are identified. Endometrium: The endometrial stripe measures 5 mm in thickness. There are nabothian cysts in the cervix. Right ovary: The right ovary measures 5.0 x 3.0 x 2.5 cm. The right ovary is normal in size and echotexture. Multiple follicles are noted. Left ovary: The left ovary measures 3.3 x 1.5 x 1.9 cm. The left ovary is normal in size and echotexture. Pelvic fluid: none. US/US pelvic and transvaginal IMPRESSION: Unremarkable pelvic ultrasound. Electronically signed by: Waqas Dacosta MD 01/05/2025 03:29 PM EDT Dictated By: Waqas Dacosta MD Signed By: <Electronically signed by Waqas Dacosta MD in OV> 01/05/25 1529 DD/ 1450 TD/TT: 01/05/25 1505 Faucet Polisher: Assessment & Plan Assessment & Plan (1) Abnormal uterine bleeding (AUB): Code(s): N93.9 - Abnormal uterine and vaginal bleeding, unspecified Category: Medical Plan: Counseled regarding treatment options for AUB to include Mirena, OCPs, other, prefers not to be on control at this time, desires future . Advised to do a home test and repeat weekly. Rx progesterone, use, side effects, warnings all reviewed. Report any abnormal changes with the bleeding-heavier/ prolonged. Follow up in 3 months, or if positive to call the office for sooner follow up. (2) Patient desires : Code(s): Z31.9 - Encounter for procreative management, unspecified Category: Medical (3) Encounter to discuss test results: Code(s): Z71.2 - Person consulting for explanation of examination or test findings Plan: Continue with a healthy well-balanced diet vitamins with folic acid and healthy lifestyle. Plan Discussed: Ultrasound findings-IMPRESSION: Unremarkable pelvic ultrasound. The patient expressed understanding and agreement with the plan of care. All of her questions and concerns were addressed to the best of my ability. Total time I personally spent on visit and management today: ?30 minutes. Time spent included review of pertinent office notes in the electronic health record; review of laboratory and imaging results; review of personal family medical history; performing physical exam; discussing diagnosis and plan of care with the patient; documenting the encounter in the EMR. This note is constructed using voice recognition software. While every effort has been made to ensure accuracy, digital imaging technician errors may have been included. Medications: New progesterone micronized (Prometrium) take 1st 12 days of each calendar month 200 mg PO .monthly 36 caps 1RF 12 days Coding Level of Care Code Tele Est Pt Level 3 (15364) Diagnoses Abnormal uterine bleeding (AUB) N93.9 Patient desires Z31.9 Encounter to discuss test results Z71.2
== END 2025-01-24 12:34 | disposition home or self-care (01) ==
LOC: HO.HWS 08:59
PROVIDERS: PCP Internal Medicine; Visit Provider Advanced Practice Midwife
DX: N93.9 Abnormal uterine and vaginal bleeding, unspecified (principal); Z31.9 Encounter for procreative management, unspecified; Z71.2 Person consulting for explanation of examination or test findings
CPT/HCPCS: 99213

== ENCOUNTER 2025-02-07 11:00 | Outpatient (REF) | payer OTHER, SELFPAY ==
[2025-02-07 11:17] LABS: MANUAL DIFF FLAG NO
[2025-02-07 11:56] LABS: Hematocrit 38.9 % (37.0-47.0); Hemoglobin 12.1 g/dl (12.0-16.0); Imm Gran Abs Auto 0.01 X10*3/uL (0.00-0.03); Imm Gran Pct Auto 0.1 % (0.0-0.4); Lymphocytes Absolute Auto 2.7 X10*3/uL (1.2-4.9); Mean Corpuscular HGB Conc 31.1 g/dl (31.0-35.0); Mean Corpuscular Hemoglobin 22.5 pg (27.0-33.0); Mean Corpuscular Volume 72.3 fL (80.0-98.0); NRBC Abs Auto 0.000 X10*3/uL (0.0-0.012); NRBC Pct Auto 0.0 /100WBC (0.0-0.2); Platelet Count 325 X10*3/uL (160-400); Red Blood Count 5.38 X10*6/uL (4.20-5.50); White Blood Count 7.2 X10*3/uL (4.8-10.8)
[2025-02-07 12:24] LABS: Appearance Urine Clear; Glucose Urine UA Negative (Negative); PH 5.5 (5.0-9.0); Specific Gravity - Urine 1.025 (1.005-1.025); UMIC TRIGGER UACC YES
[2025-02-07 12:26] LABS: Alanine Aminotransferase 51 U/L (0-31); Albumin Level 4.5 g/dL (3.5-5.0); Alkaline Phosphatase 70 U/L (39-117); Anion Gap 12 (12-20); Aspartate Amino Transferase 24 U/L (5-31); Blood Urea Nitrogen 14 mg/dL (9-16); Calcium 8.8 mg/dL (8.4-10.2); Carbon Dioxide 24 mmol/L (22-29); Chloride 108 mmol/L (96-108); Cholesterol 187 mg/dL (<200); Estimated Glomerular Filt Rate > 60; HDL Cholesterol 45 mg/dL (>40); Potassium 4.3 mmol/L (3.3-5.1); Sodium 140 mmol/L (135-145); Total Protein 7.7 g/dL (6.5-8.0); Triglycerides 150 mg/dL (<150)
[2025-02-07 12:38] LABS: UACC Culture Trigger YES
== END 2025-02-07 11:01 | disposition home or self-care (01) ==
LOC: HO.LAB 11:00
PROVIDERS: PCP Internal Medicine; Visit Provider Internal Medicine
DX: Z00.00 Encounter for general adult medical examination without abnormal findings (principal); E78.00 Pure hypercholesterolemia, unspecified; E55.9 Vitamin D deficiency, unspecified; D64.9 Anemia, unspecified
CPT/HCPCS: 36415; 80053; 80061; 81001; 82306; 84443; 85025; 87086

== ENCOUNTER 2025-03-20 10:13 | Outpatient (AMB) | payer OTHER, SELFPAY ==
--- NOTE | 2025-03-20 10:16 | A.OFFPC_ITS ---
Vital Signs 03/20/25 10:17 Height 5 ft Weight 179 lb 4 oz BMI 35.0 BP 110/82 Blood Pressure Location Lt brachial Position Sitting Respiration 18 Pulse 76 Pulse Source Pulse Oximeter Temp 97.3 F Temp Source Temporal Artery Scan Pulse Oximetry (%) 95 Oxygen Delivery Method Room Air Intake Visit Reasons: Annual physical Flower Cutter Required: No Accompanied by: Self / Same As Patient Allergies No Known Allergies Allergy (Verified 03/20/25 10:40) Medication List - Last Reconciled 03/20/25 by RAMA Guardado cetirizine (Zyrtec) 5 mg PO DAILY PRN progesterone micronized (Prometrium) 200 mg PO .monthly 12 days Tobacco use date assessed: 03/20/25 Dental Screening Dental Screen Date: 03/20/25 Did you have a dental visit in the last 12 months?: No Did you have a dental problem in the last 6 months where you did not have access to dental care?: No Was dental information given to patient?: No HPI Annual physical HPI Details Dentist:Up to date Eye: have not done this in a while Snellen: Right: Left: Corrected vision:no STI screening: Colonoscopy: Pap Smer: due 03/30/25 PHQ-9: Flu: no COVID: x1 Tdap: due will give Diet:regular Exercise:no irregular heart rhythm ? sinus arythmia PFSH Medical History Class 1 obesity Surgical History No pertinent past surgical history Family History Mother Mental health disorder Substance use disorder Father Diabetes Sister Diabetes Maternal Aunt Breast cancer Social History Housing: House Alcohol intake: current Alcohol intake frequency: holidays/special occasions only Alcohol type: hard liquor Patient Tobacco Use Status: Never used Tobacco e-Cigarette/Vaping Use: Never Used Second Hand Smoke Exposure: No Substance Use Type: Marijuana service: No Current occupational status: employed Current occupational exposures/hazards: No Cognitive needs: No Hearing needs: No Vision needs: No Female Reproductive History Menstrual Age of Menarche: 10 Questionnaire Thrive Questionnaire Date Thrive assessed: 03/13/25 SALLY-7 AMB Questionnaire SALLY-7 Date SALLY - 7 assessed: 03/15/24 Source: Developed by Drs. Waqas August, Ksenia Mcconnell, Alexys Weiner and colleagues, with an educational dwaine from [employer]. Physical exam (Primary Care) Vital Signs: Last Vital Signs Temp 97.3 F 03/20/25 10:17 Pulse 76 03/20/25 10:17 Resp 18 03/20/25 10:17 BP 110/82 03/20/25 10:17 Pulse Ox 95 03/20/25 10:17 Oxygen Delivery Method Room Air 03/20/25 10:17 BMI result Body Mass Index 35.0 Tobacco/Smoking Status: Tobacco use Status Tobacco use date assessed 03/20/25 03/20/25 10:27 Patient Tobacco Use Status Never used Tobacco 03/20/25 10:27 e-Cigarette/Vaping Use Never Used 03/20/25 10:27 Thrive Assessment: Date of Thrive Assessment Date Thrive assessed 03/13/25 03/20/25 10:27 Immunizations Tenivac (PF) 5 Lf unit-2 Lf unit/0.5 mL intramuscular syringe Performing Provider: RAMA Guardado [place] [facility] [facility] Administered by: GHAZAL Barcenas on 03/20/25 11:15 Dose Route Admin Location Dispensed Lot Number Expiration Date NDC Tube Mounter 0.5 mL IM Left Deltoid 0.5 mL [id number] 08/30/26 41340-353-80 [employer] Total Dispensed Waste 0.5 mL 0 % VIS Given Date VIS Provided VIS Publication Date 03/20/25 Single Vaccine 21 Eligibility Eligibility Date Funding Source Not [facility] Eligible 03/20/25 Private Coding Assessment & Plan Assessment & Plan Orders: Orders ECG 12 lead EKG Today I49.9 - Cardiac arrhythmia, unspecified Td Immunization Today Z23 - Encounter for immunization Comprehensive [place]. Panel Fast 3 Months E55.9 - Vitamin D deficiency, unspe cified, R74.8 - Abnormal levels of other serum enzymes Vitamin D 25-OH Total 3 Months E55.9 - Vitamin D deficiency, unspecified, R74.8 - Abnormal levels of other serum enzymes
[2025-03-20 10:17] VITALS: BP 110/82; PULSE 76; RESP 18; TEMP 36.3; O2SAT 95; BMI 35.0
== END 2025-03-20 11:28 | disposition home or self-care (01) ==
LOC: HO.HMCH 10:13
PROVIDERS: PCP Internal Medicine
DX: Z23 Encounter for immunization (principal)

== ENCOUNTER → 2025-03-20 10:13 | Outpatient (REF) | payer OTHER, SELFPAY ==
--- NOTE | 2025-03-20 14:25 | ECG_ITS ---
Test Reason : CARDIAC ARRYTHIA Blood Pressure : */* mmHG Vent. Rate : 64 BPM Atrial Rate : 64 BPM P-R Int : 174 ms QRS Dur : 76 ms QT Int : 406 ms P-R-T Axes : 45 49 55 degrees QTcB Int : 418 ms Normal sinus rhythm Normal ECG No previous ECGs available Referred By: Virgilio Jacinto Electronically Signed By: SHIMON ROSENBERG MD
== END ==
LOC: HO.CARD 10:13
PROVIDERS: PCP Internal Medicine
DX: Z00.00 Encounter for general adult medical examination without abnormal findings (principal); I49.9 Cardiac arrhythmia, unspecified; N92.6 Irregular menstruation, unspecified; D64.9 Anemia, unspecified; E55.9 Vitamin D deficiency, unspecified; R19.7 Diarrhea, unspecified; R31.9 Hematuria, unspecified; N93.9 Abnormal uterine and vaginal bleeding, unspecified; K59.00 Constipation, unspecified; R74.8 Abnormal levels of other serum enzymes; F41.9 Anxiety disorder, unspecified; E66.811 Obesity, class 1; Z23 Encounter for immunization; Z68.35 Body mass index [BMI] 35.0-35.9, adult
CPT/HCPCS: 90471; 90714; 93005

== ENCOUNTER → 2025-03-20 14:25 | Outpatient (BNV) | payer OTHER, SELFPAY | PROVIDERS: PCP Internal Medicine; Visit Provider Internal Medicine Cardiovascular Disease | DX: I49.9 Cardiac arrhythmia, unspecified (principal) | CPT/HCPCS: 93010 ==

== ENCOUNTER 2025-04-04 11:32 | Outpatient (REF) | payer OTHER, SELFPAY ==
[2025-04-04 16:53] LABS: Bacterial Vaginosis PCR NEGATIVE (Negative); Candida Group PCR DETECTED (Not Detect); Candida glab krusei PCR NOT DETECTED (Not Detect); Trichomonas vaginalis PCR NOT DETECTED (Not Detect)
[2025-04-04 17:02] LABS: CT PCR NOT DETECTED (Not Detect.); NG PCR NOT DETECTED (Not Detect.)
== END 2025-04-04 11:33 | disposition home or self-care (01) ==
LOC: HO.LNP 11:32
PROVIDERS: PCP Internal Medicine; Visit Provider Advanced Practice Midwife
DX: Z01.419 Encounter for gynecological examination (general) (routine) without abnormal findings (principal); N88.0 Leukoplakia of cervix uteri; Z20.2 Contact with and (suspected) exposure to infections with a predominantly sexual mode of transmission
CPT/HCPCS: 81515; 87491; 87591

== ENCOUNTER 2025-04-04 11:32 | Outpatient (AMB) | payer OTHER, SELFPAY ==
--- NOTE | 2025-04-04 11:36 | A.OFFVIS_ITS ---
Vital Signs 04/04/25 11:38 Height 5 ft Weight 179 lb BMI 35.0 BP 110/72 Blood Pressure Location Rt brachial Position Sitting Intake Visit Reasons: 3 month medication follow up Intake Note: Here for follow up apt for taking Prometrium for 3 months Information Interpreted: non-clinical & clinical Accompanied by: Self / Same As Patient Allergies No Known Allergies Allergy (Verified 04/04/25 11:39) Medication List - Last Reconciled 04/04/25 by Jennifer Petty LPN cetirizine (Zyrtec) 5 mg PO DAILY PRN progesterone micronized (Prometrium) 200 mg PO .monthly 12 days Is last menstrual period known: Yes Last menstrual period: 04/03/25 Do you need a note to return to daycare/school/sports/work: No HPI Comments Details: Patient is a premenopausal woman presenting for annual examination and med r efill. 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 Has her menses today. Currently is sexually active. She denies vaginal itching or irritation. STI screening offered; she accepts. She tries to eat healthy and stays active with exercise. Family history of breast cancer. Last pap smear 2023, negative. [facility] Medical History (Updated 04/04/25 @ 14:19 by Briseyda Hunt CNM) Leukoplakia of cervix Class 1 obesity Surgical History No pertinent past surgical history Family History Mother Mental health disorder Substance use disorder Father Diabetes Sister Diabetes Maternal Aunt Breast cancer Maternal Grandfather H/O liver cancer Social History Housing: House Alcohol intake: current Alcohol intake frequency: holidays/special occasions only Alcohol type: hard liquor Patient Tobacco Use Status: Never used Tobacco e-Cigarette/Vaping Use: Never Used Second Hand Smoke Exposure: No Substance Use Type: Marijuana service: No Current occupational status: employed Current occupational exposures/hazards: No Cognitive needs: No Hearing needs: No Vision needs: No Female Reproductive History Menstrual Age of Menarche: 10 Date of last menstrual period: 04/03/25 Review of Systems Const All systems reviewed & are unremarkable except as noted in HPI and below Reports as per HPI Eyes Reports no additional complaints ENT Reports no additional complaints Card Reports no additional complaints Resp Reports no additional complaints GI Reports as per HPI and Reports no additional complaints Reports as per HPI Musc Reports no additional complaints Skin/Breast Reports as per HPI Neuro Reports no additional complaints Psych Reports no additional complaints Endo Reports no additional complaints Darrian/Lymph Reports no additional complaints Aller/Immun Reports no additional complaints Physical Exam Vital Signs: Last Vital Signs BP 110/72 04/04/25 11:38 BMI result Body Mass Index 35.0 Const General: cooperative, healthy appearing, no acute distress, well developed and alert Orientation/consciousness: patient oriented x3 HEENT Head: Yes normal to inspection Eyes General: appearance normal, both eyes and all related structures Neck Neck: Yes normal visual inspection Thyroid: Thyroid normal Chest Chest palpation & inspection: normal inspection of the chest and other (no puckering, dimpling, peau de orange, retraction, discharge, masses) Breast/axilla inspection: normal inspection of the breasts Breast/axilla palpation: normal palpation of the breasts Resp Effort & Inspection: normal respiratory effort GI Inspection: Yes normal to inspection Palpation (GI): Soft to palpation Rectal Exam - Female: deferred General: Yes bladder normal to palpation External Female Exam: normal external appearance and normal appearance of the urethra Speculum Exam - Vagina: normal appearance of the vagina, normal palpation, normal vaginal discharge and vaginal bleeding Speculum Exam - Cervix: normal appearance of the cervix, normal palpation and Cervical lesion present leukoplakia (1112:00) Bimanual exam- vagina & uterus: normal bimanual exam, normal palpation, uterine size normal, bladder normal to palpation, normal palpation and non-tender Bimanual Exam- Adnexa, other: no masses OB/external & speculum: vaginal bleeding Skin General skin exam: no rashes or lesions noted Rashes: no rashes Neuro General: patient oriented x3 Cognition (Neuro): normal cognition Extrem General: Yes normal to inspection Psych Attitude: cooperative Thought process: Normal thought process present Assessment & Plan Assessment & Plan (1) Well woman exam with routine gynecological exam: Code(s): Z01.419 - Encounter for gynecological examination (general) (routine) without abnormal findings Category: Medical (2) Leukoplakia of cervix: Comment: 11-12:00, plan pap... Code(s): N88.0 - Leukoplakia of cervix uteri Category: Medical Plan Discussed: Current recommendations for pap smears per ASCCP guidelines. RTO without menses for pap 1-2wks. Breast awareness and periodic breast exams. chlamydia and BV panel obtained for screening purposes. Maintain a healthy lifestyle including a well balanced diet and routine exercise. Start vitamins for the benefit of folic acid, if needs a prescription we will send in per request. Uncertain if she is able to take the pills due to the size we will speak to the pharmacist 1st. Patient verbalizes understanding and agrees to the plan of care. She was given opportunity to ask questions and all questions were answered to the best of my ability. 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 This note is constructed using voice recognition software. While every effort has been made to ensure accuracy, toy mechanic errors may have been included. Orders: Orders Bacterial Vaginosis Panel Today Z11.3 - Encounter for screening for infections with a predominantly sexual mode of transmission CT NG by PCR Vag/Cerv Today Z11.3 - Encounter for screening for infections with a predominantly sexual mode of transmission Medications: Refilled progesterone micronized (Prometrium) take 1st 12 days of each calendar month 200 mg PO .monthly 36 caps 4RF 12 days Coding Level of Care Code Est Pt Prev Care 18-39y(67957) Diagnoses Well woman exam with routine gynecological exam Z01.419 Leukoplakia of cervix N88.0
[2025-04-04 11:38] VITALS: BP 110/72; BMI 35.0
== END 2025-04-04 12:23 | disposition home or self-care (01) ==
LOC: HO.HWS 11:32
PROVIDERS: PCP Internal Medicine; Visit Provider Advanced Practice Midwife
DX: Z01.419 Encounter for gynecological examination (general) (routine) without abnormal findings (principal); N88.0 Leukoplakia of cervix uteri
CPT/HCPCS: 99395; 99459

== ENCOUNTER 2025-05-04 09:58 | Outpatient (AMB) | payer OTHER, SELFPAY ==
--- NOTE | 2025-05-04 10:01 | MHC.OFFVIS ---
Vital Signs 05/04/25 10:10 Height 5 ft Weight 180 lb BMI 35.2 BP 102/70 Blood Pressure Location Rt brachial Position Sitting Intake Visit Reasons: pap Intake Note: here for a repeat pap. Taking prometrium but stopped felt she was having side effects like shortness of breath, dizziness, heart racing. Has not taken it in 3 weeks and had no symptoms. Boat Loader Required: No Information Interpreted: non-clinical & clinical Oncology Transplant Network Manager: Oncology Transplant Network Manager Present (Celia) Accompanied by: Self / Same As Patient Allergies No Known Allergies Allergy (Verified 05/04/25 10:05) Medication List - Last Reconciled 05/04/25 by Jennifer Petty LPN cetirizine (Zyrtec) 5 mg PO DAILY PRN progesterone micronized (Prometrium) 200 mg PO .monthly 12 days Is last menstrual period known: Yes Last menstrual period: 04/29/25 Do you need a note to return to daycare/school/sports/work: No HPI Comments Details: Patient is here today for a follow up Pap due to area of cervix with leukoplakia. History of AUB had use Aygestin for 2 cycles and then noted symptoms such as dizziness, shortness of breath, irregular heartbeat. She stopped the medications and has resolved her symptoms. She was seen by her primary care and had a EKG which was normal, subsequently went back to [facility] due to her symptoms and had another EKG while waiting to be seen which she reports is normal, she did not stay for the complete assessment of the length of time of the hospital. Bleeding episodes or closely spaced over the last month. She did not want control in the past due to planning a future . Use Junel in the past without any side effects in 2018. [facility] Medical History Leukoplakia of cervix Class 1 obesity Surgical History No pertinent past surgical history Family History Mother Mental health disorder Substance use disorder Father Diabetes Sister Diabetes Maternal Aunt Breast cancer Maternal Grandfather H/O liver cancer Social History Housing: House Alcohol intake: current Alcohol intake frequency: holidays/special occasions only Alcohol type: hard liquor Patient Tobacco Use Status: Never used Tobacco e-Cigarette/Vaping Use: Never Used Second Hand Smoke Exposure: No Substance Use Type: Marijuana service: No Current occupational status: employed Current occupational exposures/hazards: No Cognitive needs: No Hearing needs: No Vision needs: No Female Reproductive History Menstrual Age of Menarche: 10 Date of last menstrual period: 04/29/25 control method: none Total pregnancies: 1 Number of Living Children: 0 Ab induced: 1 Date of Mammogram: 09/23/23 Review of Systems Const All systems reviewed & are unremarkable except as noted in HPI and below Physical Exam Vital Signs: Last Vital Signs BP 102/70 05/04/25 10:10 BMI result Body Mass Index 35.2 Const General: cooperative, healthy appearing and no acute distress Orientation/consciousness: patient oriented x3 GI Inspection: Yes normal to inspection Palpation (GI): Soft to palpation and Other GI palpation findings present (Nontender) Rectal Exam - Female: visual inspection normal General: Yes bladder normal to palpation External Female Exam: normal appearance of the urethra Speculum Exam - Vagina: normal appearance of the vagina, normal palpation, normal vaginal discharge and vaginal bleeding Speculum Exam - Cervix: normal appearance of the cervix and normal palpation Bimanual exam- vagina & uterus: normal bimanual exam, normal palpation, uterine size normal, bladder normal to palpation, normal palpation, uterine shape normal and non-tender Bimanual Exam- Adnexa, other: normal adnexae OB/external & speculum: vaginal bleeding Neuro General: patient oriented x3 Assessment & Plan Assessment & Plan (1) Abnormal uterine bleeding (AUB): Code(s): N93.9 - Abnormal uterine and vaginal bleeding, unspecified Category: Medical Plan Pap obtained today. Informed no signs of leukoplakia noted on cervix. Advised to have endometrial biopsy procedure to rule out any abnormal endometrial cells including for atypia, hyperplasia, precancer, or cancer. Plan CBC today. Appointment within a week for EMB procedure. Consider OCP treatment options with Junel in the future. The patient expressed understanding and agreement with the plan of care. All of her questions and concerns were addressed to the best of my ability. This note is constructed using voice recognition software. While every effort has been made to ensure accuracy, bobbin loose end finder errors may have been included. Orders: Orders Pap Smear Today N93.9 - Abnormal uterine and vaginal bleeding, unspecified Complete Blood Count no Diff Today N93.9 - Abnormal uterine and vaginal bleeding, unspecified Coding Level of Care Code Est Pt Level 3 (47380) Diagnoses Abnormal uterine bleeding (AUB) N93.9
[2025-05-04 10:10] VITALS: BP 102/70; BMI 35.2
== END 2025-05-04 16:36 | disposition home or self-care (01) ==
LOC: HO.HWS 09:59
PROVIDERS: PCP Internal Medicine; Visit Provider Advanced Practice Midwife
DX: N93.9 Abnormal uterine and vaginal bleeding, unspecified (principal)
CPT/HCPCS: 99213

== ENCOUNTER 2025-05-04 09:58 | Outpatient (REF) | payer OTHER, SELFPAY | END 2025-05-04 09:59 | disposition home or self-care (01) | LOC: HO.LNP 09:58 | PROVIDERS: PCP Internal Medicine; Visit Provider Advanced Practice Midwife | DX: N93.9 Abnormal uterine and vaginal bleeding, unspecified (principal) | CPT/HCPCS: 88175 ==

== ENCOUNTER 2025-05-11 12:45 | Outpatient (REF) | payer OTHER, SELFPAY | END 2025-05-11 12:46 | disposition home or self-care (01) | LOC: HO.LNP 12:45 | PROVIDERS: PCP Internal Medicine; Visit Provider Advanced Practice Midwife | DX: N93.9 Abnormal uterine and vaginal bleeding, unspecified (principal); Z32.02 Encounter for pregnancy test, result negative; Z30.09 Encounter for other general counseling and advice on contraception | CPT/HCPCS: 58100; 81025; 88305 ==

== ENCOUNTER 2025-05-11 12:45 | Outpatient (AMB) | payer OTHER, SELFPAY ==
--- NOTE | 2025-05-11 12:49 | A.OFFVIS_ITS ---
Vital Signs 05/11/25 12:53 Height 5 ft BP 104/76 Blood Pressure Location Rt brachial Position Sitting Intake Visit Reasons: EMB Intake Note: here for endometrial Biopsy. upt negatve Gage Maker Required: No Information Interpreted: non-clinical & clinical Client Support Consultant: Client Support Consultant Present (kelsi) Accompanied by: Self / Same As Patient Allergies progesterone (From Prometrium) Allergy (Severe, Verified 05/11/25 13:58) heart palpations, Dizziness, shortness of breath Medication List - Last Reconciled 05/11/25 by Jennifer Petty LPN cetirizine (Zyrtec) 5 mg PO DAILY PRN progesterone micronized (Prometrium) 200 mg PO .monthly 12 days Is last menstrual period known: Yes Last menstrual period: 04/29/25 Do you need a note to return to daycare/school/sports/work: No HPI Comments Details: Patient is here today for an endometrial biopsy due to history of AUB-prolonged bleeding cycles. Requests OCP's for cycle control. Had side effects from Prometrium-dizziness, mild SOB, heart palpitations, seen in the ED x 2 episodes- cardiac workup was neg. Used Junel in the past without any concerns. Does not want a Mirena IUD, desires a future . control hormone use warnings: go to ER if and loss of vision, blindness, severe headache, chest pain or difficulty breathing, severe abdominal pain, or any pain or swelling in an extremity. [facility] Medical History (Updated 05/11/25 @ 13:49 by Briseyda Hunt CNM) Class 1 obesity Surgical History No pertinent past surgical history Family History Mother Mental health disorder Substance use disorder Father Diabetes Sister Diabetes Maternal Aunt Breast cancer Maternal Grandfather H/O liver cancer Social History Housing: House Alcohol intake: current Alcohol intake frequency: holidays/special occasions only Alcohol type: hard liquor Patient Tobacco Use Status: Never used Tobacco e-Cigarette/Vaping Use: Never Used Second Hand Smoke Exposure: No Substance Use Type: Marijuana service: No Current occupational status: employed Current occupational exposures/hazards: No Cognitive needs: No Hearing needs: No Vision needs: No Female Reproductive History Menstrual Age of Menarche: 10 Date of last menstrual period: 04/29/25 control method: abstinence Review of Systems Const All systems reviewed & are unremarkable except as noted in HPI and below Physical Exam Vital Signs: Last Vital Signs BP 104/76 05/11/25 12:53 Const General: cooperative, healthy appearing and no acute distress Orientation/consciousness: patient oriented x3 GI Inspection: Yes normal to inspection Palpation (GI): Soft to palpation and Other GI palpation findings present (Nontender) Rectal Exam - Female: visual inspection normal General: Yes bladder normal to palpation External Female Exam: normal appearance of the urethra Speculum Exam - Vagina: normal appearance of the vagina, normal palpation and normal vaginal discharge Speculum Exam - Cervix: normal appearance of the cervix and normal palpation Bimanual exam- vagina & uterus: normal bimanual exam, normal palpation, uterine size normal, bladder normal to palpation, normal palpation, uterine shape normal and non-tender Bimanual Exam- Adnexa, other: normal adnexae Neuro General: patient oriented x3 Office Procedures Endometrial Biopsy Details: The patient is here today for an endometrial biopsy due to AUB to rule out any pathology including atypical, hyperplasia or cancer cells of the uterus. She was counseled regarding anticipatory guidance for the procedure including the risks for pain, infection, bleeding, perforation, potential injury to the tissues may include the cervix, uterus, tubes, bladder and bowels. These injuries may include further treatment and evaluation including surgery, blood transfusions, antibiotics, hospitalizations and anesthesia. Permanent injury and scarring can occur. She was consented for the procedure, and the consent forms were signed. She is agreeable to have the procedure today. All questions were answered. Endometrial Biopsy Procedure: The patient was placed in the dorsal lithotomy position and a sterile speculum inserted. Using aseptic technique for the procedure. The cervix was cleansed with Betadine x 3 swabs. A single toothed tenaculum was placed on the cervix for stabilization and the internal os of the cervix was closed, a graduated dilator was passed once allowing the uterus to be sounded to 7 cm with a 4mm pipelle, and tissue sample obtained. Minimal bleeding was observed. Monsel's applied to left side tenaculum site for hemostasis following direct pressure. The tissue sample was placed in formalin in a patient labeled container by staff assisting and sent to the pathology department for processing and interpretation. The patient tolerate the procedure well and was in good condition when leaving the department. Endometrial Biopsy Post Procedure Care: Nothing in the vagina including: tampons, douching or intimacy until all the bleeding has subsided. There may be some post procedure bleeding for several days, this bleeding is usually light and may turn to a light brown or pink color. Mild cramps may occurs. Nothing in the vaginal including: tampons, douching, or intimacy until all the bleeding has subsided. You may take an over the counter mild analgesic such as Tylenol or Advil (if no allergies) per the manufactures recommendation on dosing, frequency, and follow the directions completely. Call the office if any: fever (over 100.4), flu like symptoms, abdominal pain (worse than cramping), foul smelling, infected appearing vaginal discharge, or heavy bleeding. If indicated: Use condoms to prevent and STI's, and only after the bleeding has stopped completely. Return to the office in 2 weeks for results and plan of care. This note is constructed using voice recognition software. While every effort has been made to ensure accuracy, tensioning machine operator errors may have been included. [id number] Biopsy Results AMB Test Urine AMB Test Urine Negative Last Edit by Jennifer Petty LPN on 12:53 Results Reviewed Results Reviewed: Laboratory Last Values Tst Clinic Negative 05/11/25 12:51 Assessment & Plan Assessment & Plan (1) Abnormal uterine bleeding (AUB): Code(s): N93.9 - Abnormal uterine and vaginal bleeding, unspecified Category: Medical (2) Counseling for initiation of control method: Code(s): Z30.09 - Encounter for other general counseling and advice on contraception Plan Endometrial biopsy procedure completed today. See procedure notes. Counseled regarding cycle control options reviewed, adamant she does not want a Mirena IUD and prefers to start Junel. Spoke with pharmacist, Luis Miguel at [facility] [place] reviewed patient med profile and was informed patient's reaction from the Prometrium, and lack of desire to try a Mirena IUD. He endorses the use of Junel based on history (tolerated in the past), to be okay for use. Patient advised of use, recommended take later in the day closer to bedtime with food, side effects, warnings and when to go to the emergency room for any reactions: respiratory, cardiac or other symptoms concerning or related to medication dosing. control hormone use warnings: go to ER if and loss of vision, blindness, severe headache, chest pain or difficulty breathing, severe abdominal pain, or any pain or swelling in an extremity. Appointment follow up in 2 weeks and then again for a pill check 1 month supply dispensed. The patient expressed understanding and agreement with the plan of care. All of her questions and concerns were addressed to the best of my ability. This note is constructed using voice recognition software. While every effort has been made to ensure accuracy, tensioning machine operator errors may have been included. Orders: Orders AMB HCG Urine Test Today Z32.02 - Encounter for test, result negative Surgical Today N93.9 - Abnormal uterine and vaginal bleeding, unspecified Medications: New norethindrone ac-eth estradiol 1.5-30 mg-mcg () skip placebo week 1 tab PO DAILY 21 tabs 0RF 21 days Discontinued progesterone micronized (Prometrium) take 1st 12 days of each calendar month Discontinued Reason: Patient Refused 200 mg PO .monthly 12 days 36 caps 4RF Coding Level of Care Code Procedure Only Diagnoses Abnormal uterine bleeding (AUB) N93.9 Counseling for initiation of control method Z30.09 CPT Codes Endometrial Biopsy - CPT: 76413-[id number] Biopsy ([id number])
[2025-05-11 12:53] VITALS: BP 104/76
== END 2025-05-11 13:43 | disposition home or self-care (01) ==
LOC: HO.HWS 12:46
PROVIDERS: PCP Internal Medicine; Visit Provider Advanced Practice Midwife
DX: N93.9 Abnormal uterine and vaginal bleeding, unspecified (principal); Z30.09 Encounter for other general counseling and advice on contraception; Z32.02 Encounter for pregnancy test, result negative
CPT/HCPCS: 58100